=== PATIENT | male | born 1945 | race Caucasian/White ===

== ENCOUNTER → 2018-04-17 17:51 | Outpatient (CLI) | payer MEDICARE, OTHER, SELFPAY | PROVIDERS: Family Provider Family Medicine; PCP Family Medicine; Visit Provider Podiatrist | DX: L03.115 Cellulitis of right lower limb (principal) | CPT/HCPCS: 87070; 87077; 87186; 87205 ==

== ENCOUNTER 2018-07-30 09:27 | Emergency (ER) | payer MEDICARE, OTHER, SELFPAY ==
[2018-07-30 09:28] VITALS: BP 142/80; PULSE 83; RESP 18; TEMP 37.1; O2SAT 98; BMI 31.7
--- NOTE | 2018-07-30 09:54 | ED.VISSUMM ---
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 No fever no cough no trauma Physical Examination: [] He is in no distress he has chronic neuropathy involving both legs right more than left where he has a right foot drop he wears a brace head neck chest unremarkable M soft nontender the right lower extremity dorsally to the foot there is an area patch of redness the toe showed no signs of infection drainage or any source of cellulitis or infection pulses are symmetric the skin is intact his neurologic function shows decreased flexion extension that is normal for him and unchanged Test Results: [] Emergency Department Course and Treatment: [] The reports he had this in the past in April he was seen by local podiatry was treated with clindamycin at this time will speak with the rheumatology fellow who sent him to the emergency department discussed the case in detail, if there is no other further suggestions and will review starting clindamycin which has helped in the past I spoke with Dr. PEREZ his centrifugal wax molder at [facility] discussed the case in detail, including the recent immuno therapy given all the above they agreed she could follow-up with that office the manufacturing software engineer locally clindamycin 300 mg every 6 hours close observation and management of the red spot on the foot including taking a picture of it demarcating it with ink and return for change in symptoms patient accompanies plan fact he did not wish to be admitted and they would follow-up with the manufacturing software engineer and continue to follow-up with dermatology office including clinic return for change in symptoms Treatment Plan: [] Disposition: [] Home stable Impression: [] Cellulitis involving the right lower extremity, recent therapy with Rituxan This note was generated with ImageSpike dictation software. It may contain incorrect words, spelling, and punctuation that were not noted in review of the chart prior to signing ED Disposition - Plan for ED Patient: Chief Complaint: Cellulitis Referrals: Sarkis Taylor DO [Primary Care Provider] -
--- NOTE | 2018-07-30 10:03 | NURSING ---
CALLED [facility] FOR CAR WORKER HELPER RHEUMATALOGIST DR MARY LOU PEREZ PAGED BY [facility] INTERNET MARKETING ASSISTANT
--- NOTE | 2018-07-30 10:26 | NURSING ---
DR PEREZ RETURNED CALL.
--- NOTE | 2018-07-30 10:48 | ED.DEP ---
ED Disposition - Plan for ED Patient: Chief Complaint: Cellulitis Instructions: Discharge Instructions for Cellulitis Prescriptions: Clindamycin HCl [Cleocin] 300 mg PO Q6H #40 cap Referrals: Sarkis Taylor DO [Primary Care Provider] -
[2018-07-30] MEDS: Clindamycin HCl 150 MG Capsule 300 MG PO (11:17)
== END 2018-07-30 11:42 | disposition home or self-care (01) ==
PROVIDERS: Emergency Provider Emergency Medicine; Family Provider Family Medicine; PCP Family Medicine
DX: L03.115 Cellulitis of right lower limb (principal); M06.9 Rheumatoid arthritis, unspecified
CPT/HCPCS: 99282

== ENCOUNTER → 2018-08-01 18:12 | Outpatient (CLI) | payer MEDICARE, OTHER, SELFPAY ==
[2018-08-01 19:32] LABS: M R Staph aureus DNA By PCR Negative (Negative); Probe Check PASS; Specimen Processing Control PASS; Staph aureus DNA By PCR NEGATIVE (Negative)
== END ==
PROVIDERS: Visit Provider Podiatrist
DX: L03.115 Cellulitis of right lower limb (principal)
CPT/HCPCS: 87070; 87077; 87186; 87205; 87640

== ENCOUNTER → 2018-12-04 20:20 | Outpatient (CLI) | payer MEDICARE, OTHER, SELFPAY | PROVIDERS: Family Provider Family Medicine; PCP Family Medicine; Referring Provider Podiatrist; Visit Provider Podiatrist | DX: L03.032 Cellulitis of left toe (principal) | CPT/HCPCS: 87070; 87075; 87077; 87186; 87205 ==

== ENCOUNTER → 2021-03-19 12:53 | Outpatient (CLI) | payer MEDICARE, OTHER, SELFPAY ==
--- NOTE | 2021-03-19 | IMM_PTH ---
PATIENT: BYRON WHITE LOC: [facility] U#:[id number] AGE/SX: 80/M ROOM: RE03/19/[address]: Dr. Bhavin Jacinto MD : 1945 BED: DIS: SPEC #: [id number] RECD: 03/20/21 13:27 STATUS: KEN REKati #: [id number] LAURI: 03/19/21 00:[address]: Bhavin Jacinto DEPT: IMMUNOHISTOCHEMISTRY RECD BY: Tiffany Gunter Tissues: A - PROSTATE RIGHT B - PROSTATE RIGHT C - PROSTATE RIGHT E - PROSTATE LEFT F - PROSTATE LEFT Procedures: 34BE12 (add) P40 (add) 34BE12 (initial) PHYSICIAN & INSTITUTION [place] [id number] SPECIMEN INFORMATION: Tissue Source: A - Right apex, B - Right mid, C - Right base, E - Left mid, F - Left base Clinical Info: Elevated PSA Specimen Number: [id number] A-C, E & F CPT code: 82013, 70430 x8 METHODOLOGY: Deparaffinized sections of prefer/formalin-fixed tissue or PAP/DQ stained slides are incubated with monoclonal/polyclonal antibodies/oligonucleotide probes. Localization is made via biotin free immunoperoxidase method. Appropriate controls are performed and reacted as expected. Results on target cell population are indicated in the following table: RESULTS: ANTIBODY / CLONE RESULT Block A P40 (BC28) positive 34BE12 (34BE12) positive Block B P40 (BC28) negative 34BE12 (34BE12) negative Block C P40 (BC28) positive 34BE12 (34BE12) positive Block E P40 (BC28) tissue exhausted 34BE12 (34BE12) tissue exhausted Block F P40 (BC28) negative 34BE12 (34BE12) negative These tests were developed and their performance characteristics determined by [facility]. They may not have been cleared or approved by the U.S. Food and Drug Administration. The FDA has determined that such clearance or approval is not necessary. The above immunohistochemical/dualISH markers are ordered and reviewed by the Pathologist. INTERPRETATION: A. Right prostate, apex, core biopsy: Benign prostate tissue. B. Right prostate, mid, core biopsy: Focal atypical small acinar proliferation. C. Right prostate, base, core biopsy: Benign prostate tissue. E. Left prostate, mid, core biopsy: Diagnostic tissue exhausted. F. Left prostate, base, core biopsy: Adenocarcinoma. AM:mehdi 03/23/2021
--- NOTE | 2021-03-19 11:30 | PROSBIL_PTH ---
PATIENT: BYRON WHITE LOC: [facility] U#:[id number] AGE/SX: 80/M ROOM: RE03/19/[address]: Dr. Bhavin Jacinto MD : 1945 BED: DIS: SPEC #: [id number] RECD: 03/19/21 13:04 STATUS: KEN ZOIE #: [id number] LAURI: 03/19/21 11:[address]: Bhavin Jacinto DEPT: SURGICAL PATHOLOGY RECD BY: Leni Rodney Tissues: A - PROSTATE RIGHT B - PROSTATE RIGHT C - PROSTATE RIGHT D - PROSTATE LEFT E - PROSTATE LEFT F - PROSTATE LEFT Procedures: PROSTATE BX HEADER OPERATION: Prostate biopsy PRE-OP DIAGNOSIS: Elevated PSA TISSUE SUBMITTED: A - Right apex, B - Right mid, C - Right base, D - Left apex, E - Left mid, F - Left base MICROSCOPIC DIAGNOSIS A. Right prostate, apex, core biopsy: Focal glandular atrophy. See comment. B. Right prostate, mid, core biopsy: Focal atypical small acinar proliferation. See comment. C. Right prostate, base, core biopsy: Focal glandular atrophy. See comment. D. Left prostate, apex, core biopsy: Focal high-grade prostatic intraepithelial neoplasia (HGPIN). E. Left prostate, mid, core biopsy: Adenocarcinoma. Caesar grade: 6 (3+3) Cores involved: 1 out of 2 cores Tissue involved: <1% Greatest tumor length: <1 mm See comment. F. Left prostate, base, core biopsy: Adenocarcinoma. Caesar grade: 6 (3+3) Cores involved: 1 out of 2 cores Tissue involved: 5% Greatest tumor length: 1.3 mm See comment. AM:mehdi 03/20/2021 COMMENT A-C, E & F - Immunohistochemistry ([id number]) supports the above diagnosis. Case has been reviewed in consultation with Dr. Welch who concurs with the above diagnosis. IDC:SJ MICROSCOPIC DESCRIPTION Slides are reviewed. GROSS DESCRIPTION A - Received is one container designated prostate, right apex. The specimen consists of two elongated fragments of light garcia-white soft tissue measuring 0.5 and 1 cm in length and 0.1 cm in diameter. The specimen is totally submitted in one cassette. B - Received is one container designated prostate, right mid. The specimen consists of two elongated fragments of light garcia-white soft tissue measuring 0.5 and 1 cm in length and 0.1 cm in diameter. The specimen is totally submitted in one cassette. C - Received is one container designated prostate, right base. The specimen consists of two elongated fragments of light garcia-white soft tissue measuring 0.5 and 1.2 cm in length and 0.1 cm in diameter. The specimen is totally submitted in one cassette. D - Received is one container designated prostate, left apex. The specimen consists of two elongated fragments of light garcia-white soft tissue measuring 0.5 and 1 cm in length and 0.1 cm in diameter. The specimen is totally submitted in one cassette. E - Received is one container designated prostate, left mid. The specimen consists of two elongated fragments of light garcia-white soft tissue measuring 0.6 and 1.5 cm in length and 0.1 cm in diameter. The specimen is totally submitted in one cassette. F - Received is one container designated prostate, left base. The specimen consists of two elongated fragments of light garcia-white soft tissue each measuring 1.2 cm in length and 0.1 cm in diameter. The specimen is totally submitted in one cassette. / SJ:rg 03/19/21 TC:0 CPT: G0146
== END ==
PROVIDERS: Referring Provider Urology; Visit Provider Urology
DX: R97.20 Elevated prostate specific antigen [PSA] (principal)
CPT/HCPCS: 88305; 88341; 88342; G0416

== ENCOUNTER → 2021-06-09 | Outpatient (CLI) | payer MEDICARE, OTHER, SELFPAY | END | disposition home or self-care (01) | PROVIDERS: Referring Provider Podiatrist; Visit Provider Podiatrist | DX: L03.032 Cellulitis of left toe (principal) | CPT/HCPCS: 87070; 87075; 87077; 87186; 87205 ==

== ENCOUNTER → 2022-03-18 | Outpatient (CLI) | payer MEDICARE, OTHER, SELFPAY | END | disposition home or self-care (01) | LOC: LABSPEC 03-19 06:41 | PROVIDERS: Referring Provider Podiatrist; Visit Provider Podiatrist | DX: L03.032 Cellulitis of left toe (principal) | CPT/HCPCS: 87070; 87075; 87077; 87186; 87205 ==

== ENCOUNTER → 2022-04-20 | Outpatient (CLI) | payer MEDICARE, OTHER, SELFPAY ==
[2022-04-20 10:40] LABS: CREATININE FINGERSTICK 1.2 mg/dL (0.70-1.30); EGFR FINGERSTICK > 60.0000 mL/min (>60)
--- NOTE | 2022-04-20 10:45 | MRI_ITS ---
PROSTATE MRI WITHOUT AND WITH IV CONTRAST HISTORY/INDICATION: Elevated PSA TECHNIQUE: Multiplanar, multisequence imaging of the pelvis in accordance with PIRADS recommendations before and after intravenous administration of 19 mL Dotarem using external phased array coil. Dedicated 3 plane small field of view T2 FSE, axial diffusion-weighted imaging with width B values 50-800 s/mm2 and calculated u=6948 s/mm2 and ADC map; and axial 3-D dynamic contrast enhanced T1 weighted images with temporal resolution in 3 mm slice thickness in addition to full pelvis postcontrast T1-weighted imaging. COMPARISON:None FINDINGS: Size: 3.5 x 4.3 x 4.2 (Lx W x H) cm for 32.9 cubic cm. Quality: Good, mild artifact Hemorrhage: None Peripheral zone: Slightly heterogeneous high signal. Focal finding as below. Transition zone: Moderate heterogeneity consistent with prostatic hyperplasia. Focal finding as below. Lesion #1: Location: right midgland transition zone anterior (RM-TZa) on series 6 image 13, axial T2 Size: 1.1 cm T2: homogeneous, moderately hypointense without extraprostatic extension, ill-defined margins. DWI: focal markedly hyperintense on high b-value DWI and markedly hypointense on ADC, image 16 series 802, 803. Prostate margin: Mildly lobular Lesion overall PI-RADS: 4/5 Neurovascular bundles: Not involved Seminal vesicles: not involved Lymph nodes: no lymphadenopathy Bones: Signal dropout of the right more than left sacrum identified on T1 and T2 fat saturation images. Other pelvic organs: normal MRI/Pelvis W/WO Contrast IMPRESSION: 1. PI-RADS 4 - High (clinically significant cancer is likely to be present). 2. Signal dropout of the right more than left sacrum on both T1 and T2 fat saturation weighted images. Potentially could represent fatty metamorphosis of the bone marrow although recommend correlation with bone scan and/or CT for evaluation of osteoblastic lesion. PI?RADSR v2.1 Assessment Categories PI-RADS 1 ? Very low (clinically significant cancer is highly unlikely to be present) PI-RADS 2 ? Low (clinically significant cancer is unlikely to be present) PI-RADS 3 ? Intermediate (the presence of clinically significant cancer is equivocal) PI-RADS 4 ? High (clinically significant cancer is likely to be present) PI-RADS 5 ? Very high (clinically significant cancer is highly likely to be present) Electronically Signed: Federico Weldon MD (Brooks) at 14:35 EDT ,
== END | disposition home or self-care (01) ==
LOC: MRI 10:18
PROVIDERS: PCP Student in an Organized Health Care Education/Training Program; Referring Provider Urology; Visit Provider Urology
DX: C61 Malignant neoplasm of prostate (principal)
CPT/HCPCS: 72197; A9575

== ENCOUNTER 2022-06-02 08:37 | Day surgery (SDC) | payer MEDICARE, OTHER, SELFPAY ==
--- NOTE | 2022-05-27 09:26 | EKG12_ITS ---
Test Reason : PREOP Blood Pressure : / mmHG Vent. Rate : 080 BPM Atrial Rate : 080 BPM P-R Int : 162 ms QRS Dur : 090 ms QT Int : 364 ms P-R-T Axes : 055 -40 065 degrees QTc Int : 419 ms Normal sinus rhythm Left axis deviation Abnormal ECG Confirmed by ETTA BENNETT, SHANNON ([id number]), news videotape editor SHAREE WOOD ([id number]) on 06/01/2022 9:37:24 AM Referred By: Bhavin Jaicnto Confirmed By:KE QUILES MD
[2022-05-27 10:48] LABS: Hematocrit 41.8 % (40-54); Hemoglobin 13.6 g/dL (13.0-16.5); Mean Corp Hgb Conc 32.5 g/dL (32-36); Mean Corpuscular Hgb 31.1 pg (27.0-32.0); Mean Corpuscular Volume 95.7 fL (80-94); Mean Platelet Vol. 8.8 fl (6.2-12.0); Platelet Count 340 K/mm3 (150-450); RBC Distribution Width CV 13.8 % (11.6-14.6); Red Blood Count 4.37 M/mm3 (4.6-6.2); White Blood Count 5.4 K/mm3 (4.4-11.0)
[2022-05-27 11:38] LABS: Anion Gap 5 (5-15); BUN 17 mg/dL (7-18); BUN/Creat Ratio 10.2 RATIO (10-20); Calcium,Total 9.2 mg/dL (8.5-10.1); Chloride 105 mmol/L (98-107); Creatinine, Serum 1.66 mg/dL (0.70-1.30); EST Glomerular Filtration Rate 43 mL/min (>60); Est Glom Filt Rate - Afr Amer 52 mL/min (>60); Glucose 85 mg/dL (74-106); Potassium 4.3 mmol/L (3.5-5.1); Sodium Level 139 mmol/L (136-145); Thyroid Stim Hormone (TSH) 1.84 uIU/mL (0.358-3.74)
--- NOTE | 2022-06-02 | IMM_PTH ---
PATIENT: BYRON WHITE LOC: [facility] [place] U#:[id number] AGE/SX: 76/M ROOM: RE06/02/[address]: Dr. Bhavin Jacinto MD : 1945 BED: DIS: 06/02/2022 SPEC #: [id number] RECD: 06/03/22 13:31 STATUS: KEN REQ #: [id number] LAURI: 06/02/22 00:[address]: Bhavin Jacinto DEPT: IMMUNOHISTOCHEMISTRY RECD BY: Tiffany Gunter ENTERED: 06/03/22 13:33 SP TYPE: IMMUNO OTHR DR: Dr. Brown Montiel, DO Tissues: H - PROSTATE LEFT K - PROSTATE LEFT Procedures: 34BE12 (add) P40 (add) 34BE12 (initial) PHYSICIAN & INSTITUTION [place] [address] SPECIMEN INFORMATION: Tissue Source: H - Left prostate, base lateral, core biopsy, K - Left prostate, apex medial, core biopsy Clinical Info: Malignant prostate neoplasm, BPH with lower urinary tract symptoms, elevated PSA Specimen Number: [id number] H & K CPT code: 60117, 49179 x3 METHODOLOGY: Deparaffinized sections of prefer/formalin-fixed tissue or PAP/DQ stained slides are incubated with monoclonal/polyclonal antibodies/oligonucleotide probes. Localization is made via biotin free immunoperoxidase method. Appropriate controls are performed and reacted as expected. Results on target cell population are indicated in the following table: RESULTS: ANTIBODY / CLONE RESULT Block H 34BE12 (34BE12) negative (a few glands) P40 (BC28) negative (a few glands) Block K 34BE12 (34BE12) positive P40 (BC28) positive These tests were developed and their performance characteristics determined by [facility]. They may not have been cleared or approved by the U.S. Food and Drug Administration. The FDA has determined that such clearance or approval is not necessary. The above immunohistochemical/dualISH markers are ordered and reviewed by the Pathologist. INTERPRETATION: H. Left prostate, base lateral, core biopsy: Focal Atypical small acinar proliferation (BERNADINE). K. Left prostate, apex medial, core biopsy: Negative for malignancy. SJ:mehdi 06/04/2022
--- NOTE | 2022-06-02 | PROSBIL_PTH ---
PATIENT: BYRON WHITE LOC: [facility] [place] U#:[id number] AGE/SX: 76/M ROOM: RE06/02/[address]: Dr. Bhavin Jacinto MD : 1945 BED: DIS: 06/02/2022 SPEC #: [id number] RECD: 06/02/22 13:12 STATUS: KEN RE #: [id number] LAURI: 06/02/22 00:[address]: Bhavin Jacinto DEPT: SURGICAL PATHOLOGY RECD BY: Raimundo Stewart ENTERED: 06/02/22 13:15 SP TYPE: PROST BX SHOBHA DR: Dr. Brown Montiel, DO Tissues: A - PROSTATE RIGHT B - PROSTATE RIGHT C - PROSTATE RIGHT D - PROSTATE RIGHT E - PROSTATE RIGHT F - PROSTATE RIGHT G - PROSTATE LEFT H - PROSTATE LEFT I - PROSTATE LEFT J - PROSTATE LEFT K - PROSTATE LEFT L - PROSTATE LEFT Procedures: PROSTATE BX HEADER OPERATION: Ultrasound-guided prostate biopsy PRE-OP DIAGNOSIS: Malignant neoplasm of prostate, BPH with lower urinary tract symptoms, elevated PSA TISSUE SUBMITTED: A ? Right base medial biopsy, prostate, B ? Right base lateral biopsy, prostate, C ? Right mid medial biopsy, prostate, D ? Right lateral biopsy, prostate, E ? Right apex medial biopsy, prostate, F - Right apex lateral biopsy, prostate, G ? Left base medial biopsy, prostate, H - Left base lateral biopsy, prostate, I ? Left mid medial biopsy, prostate, J ? Left mid lateral biopsy, prostate, K ? Left apex medial biopsy, prostate, L - Left apex lateral biopsy, prostate MICROSCOPIC DIAGNOSIS A. Right prostate, base medial, core biopsy: Prostatic adenocarcinoma. Caesar grade: 3+3=6 Number of cores involved: 1/1 Proportion of tissue involved: ~30% Perineural invasion: Not identified. Greatest tumor length: 0.5 cm B. Right prostate, base lateral, core biopsy: Prostatic adenocarcinoma. Athelstane grade: 3+3=6 Number of cores involved: 1/1 Proportion of tissue involved: 30% Perineural invasion: Not identified. Greatest tumor length: 0.3 cm C. Right prostate, mid medial, core biopsy: Prostatic adenocarcinoma. Caesar grade: 3+3=6 Number of cores involved: 1/1 Proportion of tissue involved: 50% Perineural invasion: Not identified. Greatest tumor length: 0.8 cm D. Right prostate, lateral, core biopsy: Prostatic adenocarcinoma. Caesar grade: 3+3=6 Number of cores involved: 1/1 Proportion of tissue involved: ~10% Perineural invasion: Not identified. Greatest tumor length: 1.0 cm, discontinuous E. Right prostate, apex medial, core biopsy: Prostatic adenocarcinoma. Athelstane grade: 3+3=6 Number of cores involved: 1/1 Proportion of tissue involved: 25% Perineural invasion: Not identified. Greatest tumor length: 0.4 cm F. Right prostate, apex lateral, core biopsy: Prostatic adenocarcinoma. Caesar grade: 3+3=6 Number of cores involved: 1/1 Proportion of tissue involved: 30% Perineural invasion: Not identified. Greatest tumor length: 1.3 cm, discontinuous G. Left prostate, base medial, core biopsy: Prostatic tissue, negative for malignancy. H. Left prostate, base lateral, core biopsy: Focal atypical small acinar proliferation (BERNADINE). See comment. I. Left prostate, mid medial, core biopsy: Prostatic adenocarcinoma. Athelstane grade: 3+3=6 Number of cores involved: 1/ Proportion of tissue involved: 25% Perineural invasion: Not identified. Greatest tumor length: 0.3 cm J. Left prostate, mid lateral, core biopsy: Prostatic tissue, negative for malignancy. K. Left prostate, apex medial, core biopsy: Prostatic tissue, negative for malignancy. See comment. L. Left prostate, apex lateral, core biopsy: Prostatic tissue, negative for malignancy. SJ:mehdi 06/03/2022 COMMENT H & K. Immunohistochemistry ([id number]) supports the above diagnosis. Case has been reviewed in consultation with Dr. Anguiano who concurs with the above diagnosis. IDC:AM MICROSCOPIC DESCRIPTION Slides are reviewed. GROSS DESCRIPTION A - Received is one container designated prostate, right base medial. The specimen consists of one elongated fragment of light garcia-white soft tissue measuring 2 cm in length and 0.1 cm in diameter. The specimen is totally submitted in one cassette. B - Received is one container designated prostate, right base lateral. The specimen consists of one elongated fragment of light garcia-white soft tissue measuring 2 cm in length and 0.1 cm in diameter. The specimen is totally submitted in one cassette. C - Received is one container designated prostate, right mid medial. The specimen consists of one elongated fragment of light garcia-white soft tissue measuring 1.5 cm in length and 0.1 cm in diameter. The specimen is totally submitted in one cassette. D - Received is one container designated prostate, right mid lateral. The specimen consists of one elongated fragment of light garcia-white soft tissue measuring 2 cm in length and 0.1 cm in diameter. The specimen is totally submitted in one cassette. E - Received is one container designated prostate, right apex medial. The specimen consists of one elongated fragment of light garcia-white soft tissue measuring 1.5 cm in length and 0.1 cm in diameter. The specimen is totally submitted in one cassette. F - Received is one container designated prostate, right apex lateral. The specimen consists of one elongated fragment of light garcia-white soft tissue measuring 2 cm in length and 0.1 cm in diameter. The specimen is totally submitted in one cassette. G - Received is one container designated prostate, left base medial. The specimen consists of one elongated fragment of light garcia-white soft tissue measuring 2 cm in length and 0.1 cm in diameter. The specimen is totally submitted in one cassette. H - Received is one container designated prostate, left base lateral. The specimen consists of one elongated fragment of light garcia-white soft tissue measuring 2 cm in length and 0.1 cm in diameter. The specimen is totally submitted in one cassette. I - Received is one container designated prostate, left mid medial. The specimen consists of one elongated fragment of light garcia-white soft tissue measuring 2 cm in length and 0.1 cm in diameter. The specimen is totally submitted in one cassette. J - Received is one container designated prostate, left mid lateral. The specimen consists of one elongated fragment of light garcia-white soft tissue measuring 2 cm in length and 0.1 cm in diameter. The specimen is totally submitted in one cassette. K - Received is one container designated prostate, left apex medial. The specimen consists of one elongated fragment of light garcia-white soft tissue measuring 1.5 cm in length and 0.1 cm in diameter. The specimen is totally submitted in one cassette. L - Received is one container designated prostate, left base lateral. The specimen consists of two elongated fragments of light garcia-white soft tissue each measuring 1.5 cm in length and 0.1 cm in diameter. The specimen is totally submitted in one cassette. / AM:mehdi 06/02/2022 TC:0 CPT: G0146
--- NOTE | 2022-06-02 09:12 | US_ITS ---
PROCEDURES: TRANSRECTAL ULTRASOUND GUIDED - PROSTATE REASON FOR EXAM: Male, 76 years old. Prostate biopsy TECHNIQUE: Ultrasound evaluation of the prostate was performed with real-time and static ramirez-scale imaging. BIOPSY: A needle core biopsy was perform. A consent form was signed, PT-PTT levels checked and a time-out was called. The patient is currently off any anticoagulant therapy. Cleansing enema: Yes COMPARISON: None. FINDINGS: Ultrasound-guided prostate biopsy. 12 samples were obtained. US/Intraoperative Ultrasound IMPRESSION: Ultrasound guided prostate biopsy. Electronically Signed: Isaak Paredes MD at 11:56 EDT ,
[2022-06-02 09:13] VITALS: BP 146/76; PULSE 98; RESP 16; TEMP 37.2; O2SAT 100; BMI 31.4
[2022-06-02] MEDS: Lactated Ringers 1,000 ML 15 ML IV (09:20)
[2022-06-02] MEDS: Cefazolin 2 GM in 0.9% Normal Saline 100 ML IV (10:49)
--- NOTE | 2022-06-02 11:11 | PCM.HP.STD ---
HPI - General HPI Narrative BYRON WHITE, is a 76 M who presents for a prostate biopsy h/o low grade prostate ca, on but rising psa and MrI with sujata seen. will do biopsy today, rec we not do TURP until we establish his cancer care plan first. REPLACED BY [facility] Medical History (Updated 05/26/22 @ 13:24 by Luzmaria García) Ambulates with cane Cancer Eczema Foot drop High cholesterol History of echocardiogram History of edema History of renal disease Hx of ingrown nail Hypertension Hypothyroid Loss of hearing Monoclonal paraproteinemia Neuropathy Osteopenia Rheumatoid arthritis Sciatic nerve pain Sleep apnea Vasculitis Walker as ambulation aid Wears glasses Home Medications fish oil-dha-epa 1,200 mg-144 mg-216 mg capsule 2 ea PO DAILY 10/31/15 [History Last Taken Unknown] multivitamin (Daily Multiple) 1 ea PO DAILY 10/31/15 [History Last Taken Unknown] acetaminophen 500 mg tablet 1,000 mg PO Q8H PRN Pain 05/26/22 [History Last Taken Unknown] amlodipine 5 mg tablet 1 tab PO DAILY 05/26/22 [History Last Taken 06/02/22 04:00] ascorbic acid (vitamin C) 500 mg chewable tablet (Vitamin C) 500 mg PO DAILY 05/26/22 [History Last Taken Unknown] cholecalciferol (vitamin D3) 50 mcg (2,000 unit) capsule (Vitamin D3) 50 mcg PO DAILY 05/26/22 [History Last Taken Unknown] ciprofloxacin HCl 500 mg tablet 1 tab PO BID 05/26/22 [History Last Taken Unknown] cyanocobalamin (vitamin B-12) 500 mcg tablet (Vitamin B-12) 500 mcg PO DAILY 05/26/22 [History Last Taken Unknown] levothyroxine 125 mcg tablet 1 tab PO DAILY 05/26/22 [History Last Taken 06/02/22 04:00] methylprednisolone sodium succ 125 mg/2 mL solution for injection 125 mg IV QMONTH 05/26/22 [History Last Taken Unknown] multivitamin 1 tab PO DAILY 05/26/22 [History Last Taken Unknown] rituximab 10 mg/mL concentrate,intravenous 10 mg IV QMONTH 05/26/22 [History Last Taken Unknown] tamsulosin 0.4 mg capsule 2 cap PO DAILY 05/26/22 [History Last Taken Unknown] ciprofloxacin HCl 500 mg tablet (Cipro) 500 mg PO BID #6 tabs 06/02/22 [Rx Last Taken Unknown] Allergy/AdvReac Type Severity Reaction Status Date / Time methotrexate Allergy Other Verified 06/02/22 09:13 NSAIDS (Non-Steroidal AdvReac Other Verified 06/02/22 09:13 Anti-Inflamma Penicillins AdvReac Other Verified 06/02/22 09:13 Surgical History (Updated 05/26/22 @ 13:24 by Luzmaria García) History of ankle surgery Social History Smoking Status: Never smoker Vital Signs Vital Signs Vital Signs: 06/02/22 09:13 06/02/22 09:13 Temperature 99.0 F Temperature Source Temporal Pulse Rate 98 Respiratory Rate 16 Respiratory Pattern Normal Blood Pressure 146/76 H Blood Pressure Mean 99 Blood Pressure Source Monitor Blood Pressure Position Semi-Fowlers Blood Pressure Location Left Arm Pulse Ox 100 Oxygen Delivery Method Room Air Weight Weight: 91 kg Body Mass Index (BMI) 31.4 Results Lab / Micro Data Result Diagrams: 05/27/22 09:45 05/27/22 09:45
--- NOTE | 2022-06-02 11:12 | DCINST_ITS ---
Discharge Instructions Diet Discharge Diet: Light diet - advance as tolerated and Soft diet Activity Discharge Activity: Return to Normal Activity and No Restrictions Follow Up Care Please Follow Up With: Bhavin Jacinto MD When: 2 weeks, call for appt. Test Results: Test results from this visit will be discussed in further detail at your follow- up appointment, if applicable. Discharge Plan Admission Primary Reason for Your Visit: us guided prostate biopsy Attending Provider: Bhavin Jacinto Primary Care Provider: Brown Montiel Discharge Orders/Prescriptions Prescriptions: New ciprofloxacin HCl [Cipro] 500 mg tablet 500 mg PO BID Qty: 6 0RF Continued multivitamin [Daily Multiple] 1 EACH tablet 1 ea PO DAILY fish oil-dha-epa 1 EACH capsule 2 ea PO DAILY multivitamin Tablet 1 tab PO DAILY amlodipine 5 mg tablet 1 tab PO DAILY Label Comments: TAKE 1 TABLET BY MOUTH DAILY acetaminophen 500 mg Tablet 1,000 mg PO Q8H PRN (Reason: Pain) cyanocobalamin (vitamin B-12) [Vitamin B-12] 500 mcg Tablet 500 mcg PO DAILY tamsulosin 0.4 mg capsule 2 cap PO DAILY Label Comments: TAKE 2 CAPSULES BY MOUTH EVERY EVENING levothyroxine 125 mcg tablet 1 tab PO DAILY Label Comments: TAKE 1 TABLET BY MOUTH DAILY ascorbic acid (vitamin C) [Vitamin C] 500 mg Tablet,Chewable 500 mg PO DAILY rituximab 10 mg/mL Concentrate 10 mg IV QMONTH Rx Instructions: Every 6 months cholecalciferol (vitamin D3) [Vitamin D3] 50 mcg (2,000 unit) Capsule 50 mcg PO DAILY ciprofloxacin HCl 500 mg tablet 1 tab PO BID Label Comments: TAKE 1 TABLET BY MOUTH TWICE DAILY start med the day before your surgery methylprednisolone sodium succ 125 mg/2 mL Recon Soln 125 mg IV QMONTH Rx Instructions: Every 6 months Other Ambulatory Orders: 12 Lead EKG (Routine) Timeframe: [id number] Location: None Selected Ordered By: Dr. Miguel Mcelroy Referrals / Follow Up: Bhavin Jacinto MD [STAFF PHYSICIAN] - Brown Montiel DO [Primary Care Provider] - Disposition Disposition (needs filled in before D/C Order can be placed): Home, Self Care
--- NOTE | 2022-06-02 11:12 | PCM.OPRPT ---
Report of Operation Date of Procedure: 06/02/22 Pre-Operative Diagnosis: Elevated PSA rising PSA history of prostate cancer abnormal an MRI Post-Operative Diagnosis: Same Surgery/Procedure Performed:: Transrectal ultrasound-guided biopsy of the prostate targeting lesions an MRI Description of Surgical Findings:: Patient was taken back to the operating room at the [facility] duction of general anesthetic a biplanar ultrasound probe was placed into the rectum we performed ultrasonography of the prostate identified the anatomy he had a small prostate only about 35 g in size did have transition zone slightly enlarged but very hypoechoic area in the right anterior zone area of the prostate very concerning for cancer I did biopsies of the right base right mid right apex medially and laterally on both the left and right side after the biopsies were completed good sampling of the prostate was obtained in all areas minimal bleeding after the procedure. We made sure to incorporate into the biopsies areas abnormally seen on ultrasound. Patient anesthetic reversed see me in a few weeks to review the results of the biopsy and then will have to establish a definite plan of care if it demonstrates progression of his cancer. Surgeon: Bhavin Jacinto Type of Anesthesia: General Admit VTE Documentation VTE Present on Admission: No VTE Mechan Device Prophylaxis: SCD's VTE Pharm Prophylaxis ordered?: No
[2022-06-02 11:19] VITALS: BP 103/66; BP 146/76; PULSE 87; RESP 16; TEMP 36.5; O2SAT 91
[2022-06-02 11:30] VITALS: BP 113/70; BP 146/76; PULSE 86; RESP 16; O2SAT 94
[2022-06-02 11:45] VITALS: BP 129/74; BP 146/76; PULSE 87; RESP 18; TEMP 36.7; O2SAT 94
[2022-06-02] MEDS: Acetaminophen 325 MG Tablet 650 MG PO (12:12)
[2022-06-02 12:21] VITALS: BP 139/74; BP 146/76; PULSE 82; RESP 16; TEMP 36.9; O2SAT 98
== END 2022-06-02 12:30 | disposition home or self-care (01) ==
LOC: SDC 08:38 → AC 08:38
PROVIDERS: Anesthesiology; PCP Student in an Organized Health Care Education/Training Program; Referring Provider Urology; Visit Provider Urology
PROC: (CPT 55700; principal; 2022-06-02 10:40)
DX: C61 Malignant neoplasm of prostate (principal); R97.20 Elevated prostate specific antigen [PSA]; I10 Essential (primary) hypertension; Z79.1 Long term (current) use of non-steroidal anti-inflammatories (NSAID); E78.00 Pure hypercholesterolemia, unspecified; N42.32 Atypical small acinar proliferation of prostate; Z85.46 Personal history of malignant neoplasm of prostate
CPT/HCPCS: 55700; 00902; 36415; 76998; 80048; 84443; 85027; 88305; 88341; 88342; 93005; J7120; G0416; J2405

== ENCOUNTER 2022-08-04 05:50 | Day surgery (SDC) | payer MEDICARE, OTHER, SELFPAY ==
[2022-08-04 06:33] VITALS: BP 141/79; PULSE 80; RESP 16; TEMP 36.3; O2SAT 98; BMI 31.4
[2022-08-04] MEDS: Lactated Ringers 1,000 ML 15 ML IV (06:38)
[2022-08-04] MEDS: Cefazolin 2 GM in 0.9% Normal Saline 100 ML IV (07:27)
--- NOTE | 2022-08-04 07:49 | HP.PCM_ITS ---
HPI - General General Date of Service: 08/04/22 HPI Narrative BYRON WHITE, is a 76 M who presents for placement of spacer gel and also gold markers for radiation we talked extensively about the risk of radiation he understands that even with a spacer gel there is no guarantees that this will prevent any toxic complications from radiation to the rectum. [facility] Medical History (Updated 06/18/22 @ 11:[address] Bret Wesley, DO) Abnormal pathology report from prostate needle biopsy Abnormal transrectal ultrasound of prostate Ambulates with cane BPH (benign prostatic hyperplasia) Cancer Cataract (lens) fragments in eye following cataract surgery Eczema Foot drop High cholesterol History of echocardiogram History of edema History of renal disease Hx of ingrown nail Hypertension Hypothyroid Loss of hearing Monoclonal paraproteinemia Neuropathy Osteopenia PSA elevation Rheumatoid arthritis Sciatic nerve pain Sleep apnea Vasculitis Walker as ambulation aid Wears glasses Home Medications multivitamin (Daily Multiple tablet) 1 ea PO DAILY 10/31/15 [History Last Taken Unknown] acetaminophen 500 mg tablet 1,000 mg PO Q8H PRN Pain 05/26/22 [History Last Taken Unknown] amlodipine 5 mg tablet 1 tab PO DAILY 05/26/22 [History Last Taken 08/04/22 1 TAB] ascorbic acid (vitamin C) 500 mg chewable tablet (Vitamin C) 500 mg PO DAILY 05/26/22 [History Last Taken Unknown] cholecalciferol (vitamin D3) 50 mcg (2,000 unit) capsule (Vitamin D3) 50 mcg PO DAILY 05/26/22 [History Last Taken Unknown] cyanocobalamin (vitamin B-12) 500 mcg tablet (Vitamin B-12) 500 mcg PO DAILY 05/26/22 [History Last Taken Unknown] levothyroxine 125 mcg tablet 1 tab PO DAILY 05/26/22 [History Last Taken 08/04/22 1 TAB] methylprednisolone sodium succ 125 mg/2 mL solution for injection 125 mg IV .[id number] 05/26/22 [History Last Taken Unknown] rituximab 10 mg/mL concentrate,intravenous 10 mg IV .[id number] 05/26/22 [History Last Taken Unknown] diphenhydramine HCl 25 mg capsule (Allergy (diphenhydramine)) 25 mg PO .[id number] PRN ONLY WITH INFUSIONS 06/16/22 [History Last Taken Unknown] ceramides 1,3,6-II (CeraVe topical cream) 1 applic topical DAILY 07/28/22 [History Last Taken Unknown] leuprolide (3 month) 22.5 mg (3 month) subcutaneous syringe (Eligard) 22.5 mg subcut .[id number] 07/28/22 [History Last Taken Unknown] omega-3 fatty acids 1,000 mg PO DAILY 07/28/22 [History Last Taken 07/29/22] triamcinolone acetonide 0.1 %-silicones topical kit 1 ea topical DAILY PRN Rash 07/28/22 [History Last Taken Unknown] ciprofloxacin HCl 500 mg tablet (Cipro) 500 mg PO BID #14 tabs 08/04/22 [Rx Last Taken Unknown] Allergy/AdvReac Type Severity Reaction Status Date / Time methotrexate Allergy Other Verified 08/04/22 06:28 NSAIDS (Non-Steroidal AdvReac Other Verified 08/04/22 06:28 Anti-Inflamma Penicillins AdvReac Other Verified 08/04/22 06:28 Family History Father Cancer Marcus Cell Cancer Arthritis Mother Arthritis Surgical History (Updated 07/28/22 @ 09:11 by Laverne Cavanaugh) H/O removal of cyst History of ankle surgery Hx of prostate biopsy Hx of tonsillectomy Social History (Updated 06/18/22 @ 09:46 by Domenica Latham) household members: spouse number of children: 2 Smoking Status: Former smoker pack-years: 1 Vital Signs Vital Signs Vital Signs: 08/04/22 06:33 08/04/22 06:33 Temperature 97.3 F L Temperature Source Temporal Pulse Rate 80 Respiratory Rate 16 Respiratory Pattern Normal Blood Pressure 141/79 H Blood Pressure Mean 99 Blood Pressure Source Monitor Blood Pressure Position Semi-Fowlers Blood Pressure Location Right Arm Pulse Ox 98 Oxygen Delivery Method Room Air Weight Weight: 91 kg Body Mass Index (BMI) 31.4
--- NOTE | 2022-08-04 07:50 | OP.PCM_ITS ---
Report of Operation Date of Procedure: 08/04/22 Pre-Operative Diagnosis: Prostate cancer Post-Operative Diagnosis: Same Surgery/Procedure Performed:: Placement of gold markers and spacer gel matrix Description of Surgical Findings:: In the preoperative area I reviewed with the patient how the procedure is done we talked about the risk of the procedure including the risk of infection, bleeding, migration of the spacer gel, the patient is planning to have radiation to the prostate he understands that the spacer gel has demonstrated benefit in reducing the risk of toxicity from the ration radiation to the rectum but there is no guarantees that this spacer gel will prevent any serious complications or toxicity to the rectum or bowels. After reviewing this with the patient and his family organ to proceed with placement of a spacer gel matrix. Patient was taken back to the operating room after smooth induction of anesthesia he was placed supine on the table. The genitals and perineum were prepped and draped in usual sterile fashion. I then introduced a biplanar ultrasound probe into the rectum and performed ultrasonography and identified the Denonvilliers' fascia the prostate mid base and apex and seminal vesicles. The penis and testicles were prepped and draped in usual sterile fashion, ultrasound probe was placed into the rectum and biplanar ultrasound was performed on the prostate. Identified the base mid and apex of the prostate identified the transition zone prostate. Then using a needle the first fishing rod marker was placed into the right base of the prostate, the second fishing rod marker was placed in the left base of the prostate, and the third core marker was placed in the right apex of the prostate after all 3 markers were placed the placement of the markers were confirmed by ultrasonography. The spacer gel mix was then prepared on the back table per manufactures instruction. Under ultrasound guidance in the midline perineum a bevel needle down we advanced through the perineum below the prostate into the space of Denonvilliers' fascia. This space which could be identified by ultrasound with a bright white layer between the prostate and the rectum. I then injected a puff of normal saline to identify the space further. After I confirmed that the needle was in the correct space in the mid prostate and the space of Denonvilliers' fascia between the rectum and the prostate. Then over the course of 15 seconds the gel matrix was injected slowly there was nice separation between the prostate and the rectum at the gel matrix was injected. The position of the gel matrix was confirmed by ultrasound. Then the injection needle was removed intact. Patient's perineum was cleaned patient was taken out of stirrups and then taken back to the PACU in good condition. Surgeon: Bhavin Jacinto Type of Anesthesia: General Drains: none Complications none Admit VTE Documentation VTE Present on Admission: No VTE Mechan Device Prophylaxis: SCD's
--- NOTE | 2022-08-04 07:53 | PCM.DC ---
Discharge Instructions Diet Discharge Diet: No restrictions and Light diet - advance as tolerated Activity Discharge Activity: Return to Normal Activity Follow Up Care Please Follow Up With: Bhavin Epstein MD When: keep appt for next eligard injection. Discharge Plan Admission Primary Reason for Your Visit: placement of spacer gel Attending Provider: Bhavin Epstein Primary Care Provider: Brown Montiel Discharge Orders/Prescriptions Prescriptions: New ciprofloxacin HCl [Cipro] 500 mg tablet 500 mg PO BID Qty: 14 0RF Continued diphenhydramine HCl [Allergy (diphenhydramine)] 25 mg capsule 25 mg PO .[id number] PRN (Reason: ONLY WITH INFUSIONS) multivitamin [Daily Multiple] 1 EACH tablet 1 ea PO DAILY amlodipine 5 mg tablet 1 tab PO DAILY Label Comments: TAKE 1 TABLET BY MOUTH DAILY acetaminophen 500 mg Tablet 1,000 mg PO Q8H PRN (Reason: Pain) cyanocobalamin (vitamin B-12) [Vitamin B-12] 500 mcg Tablet 500 mcg PO DAILY levothyroxine 125 mcg tablet 1 tab PO DAILY Label Comments: TAKE 1 TABLET BY MOUTH DAILY ascorbic acid (vitamin C) [Vitamin C] 500 mg Tablet,Chewable 500 mg PO DAILY rituximab 10 mg/mL Concentrate 10 mg IV .[id number] Rx Instructions: Every 6 months cholecalciferol (vitamin D3) [Vitamin D3] 50 mcg (2,000 unit) Capsule 50 mcg PO DAILY methylprednisolone sodium succ 125 mg/2 mL Recon Soln 125 mg IV .[id number] Rx Instructions: Every 6 months Eligard (3 month) 22.5 mg Syringe 22.5 mg SUBCUT .[id number] omega-3 fatty acids Capsule 1,000 mg PO DAILY Label Comments: STOP [address] EPSTEIN CeraVe Cream 1 applic TOPICAL DAILY triamcinolone aceton-silicones 0.1 % Kit 1 ea TOPICAL DAILY PRN (Reason: Rash) Referrals / Follow Up: Bhavin Epstein MD [Med Staff - Active Staff] - Brown Montiel DO [Primary Care Provider] - Disposition Disposition (needs filled in before D/C Order can be placed): Home, Self Care
[2022-08-04 07:56] VITALS: BP 116/64; BP 141/79; PULSE 85; RESP 16; TEMP 36.6; O2SAT 93
[2022-08-04 08:01] VITALS: BP 112/70; BP 141/79; PULSE 83; RESP 16; O2SAT 94
[2022-08-04 08:15] VITALS: BP 125/76; BP 141/79; PULSE 79; RESP 16; TEMP 36.3; O2SAT 95
[2022-08-04 08:45] VITALS: BP 126/87; BP 141/79; PULSE 87; RESP 16; TEMP 36.6; O2SAT 98
== END 2022-08-04 09:03 | disposition home or self-care (01) ==
LOC: SDC 05:50 → AC 05:51
PROVIDERS: PCP Student in an Organized Health Care Education/Training Program; Referring Provider Urology; Visit Provider Urology
PROC: (CPT 55874; principal; 2022-08-04 07:15)
DX: C61 Malignant neoplasm of prostate (principal); Z87.891 Personal history of nicotine dependence; N40.0 Benign prostatic hyperplasia without lower urinary tract symptoms; E78.00 Pure hypercholesterolemia, unspecified; E03.9 Hypothyroidism, unspecified; I10 Essential (primary) hypertension
CPT/HCPCS: 55876; 00400; J7120; J2405

== ENCOUNTER → 2022-08-12 | Outpatient (CLI) | payer MEDICARE, OTHER, SELFPAY ==
--- NOTE | 2022-08-12 10:41 | MRI_ITS ---
STUDY: MR PELVIS WITH T WITHOUT CONTRAST REASON FOR EXAM: Male, 76 years old. ELEVATED PROSTATE SPECIFIC ANTIGEN History: s/p spaceOAR and fiducials, planning for XRT -- PROSTATE CANCER X 1 1/2 YEARS. TECHNIQUE: Standardized fat and water weighted pulse sequences were obtained in all 3 orthogonal planes, pre-and post contrast administration. with and without 18mL CLARISCAN contrast material was administered intravenously for the contrast portion of the examination. Comparison: MR PELVIS W/WO 04/20/22 report only. no images. FINDINGS: Bulging of the prostate gland into the urinary bladder. This is seen in benign prostatic hypertrophy. Normal visualized colon. There are atherosclerotic vascular calcifications. SpaceOAR System is noted between the rectum and prostate gland. It has high T2 signal and a gel like appearance. There is no extra capsular extension. There are no abnormal lymph nodes. There is enlargement of the prostate gland. Prostate gland: The anterior fibromuscular stroma and central zone appear intact. The central gland demonstrates normal signal characteristics. Rectum is unremarkable. Levator ani muscle is not disrupted. The distal urethra is surrounded by the low T2 signal intensity muscle which is the external urethral sphincter as noted on the coronal images. The penile bulb is embraced by an intact inferomedial levator ani muscle. No areas of abnormal enhancement. Normal visualized neurovascular bundles. There is abnormal MRI signal in the right midgland transition zone TZa with extension to TZp on series 6 image 18, axial T2. It is 11mm in size. On T2 images, the area is homogeneous but moderately hypointense without extraprostatic extension, ill-defined margins. DWI: focal markedly hyperintense on high b-value DWI and markedly hypointense on ADC, image 107 series 9 and SE 901 IM: 14. There is no pelvic fluid. There is no pelvic mass lesion or lymphadenopathy. Normal visualized pelvic arteries. Normal osseous structures. Normal abdominal wall. MRI/Pelvis W/WO Contrast IMPRESSION: RIGHT lesion TZa with extension to TZp. Assessment: PIRADS 4 - High. Clinically significant cancer is likely to be present. Electronically Signed: James Barajas MD at 20:21 EDT ,
== END | disposition home or self-care (01) ==
PROVIDERS: PCP Student in an Organized Health Care Education/Training Program; Referring Provider Student in an Organized Health Care Education/Training Program; Visit Provider Student in an Organized Health Care Education/Training Program
DX: C61 Malignant neoplasm of prostate (principal)
CPT/HCPCS: 72197; 77014; 77290; A9575

== ENCOUNTER 2023-01-12 21:43 | Emergency (ER) | payer MEDICARE, OTHER, SELFPAY ==
[2023-01-12 21:43] VITALS: BP 156/73; PULSE 93; RESP 16; TEMP 36.6; O2SAT 100; BMI 32.2
--- NOTE | 2023-01-12 23:11 | EX.ED.DYSGE1 ---
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 He was confused and was having problems giving the bank his Social Security number on Tuesday. He had an infusion of his rheumatoid arthritis medication that he gets every 6 months on . This is when he was confused the following Tuesday, 2 days ago. He also has history of prostate carcinoma. He states that his numbness of his arms and legs has been since 2016, as he has history of Guillain-Shearer?. His is concerned that he may have COVID or influenza because after his infusion he is supposed to be feeling better with his joints and limbs, but he started to get body aches. He denies any fevers or chills, but he does feel flushed at times. Additionally, while he states his numbness in his arms and legs is chronic, he denies any dysuria or hematuria. He presents for evaluation of an infectious process causing his body aches and for him to feel worse, along with his memory problems. [facility] Medical History Abnormal pathology report from prostate needle biopsy Abnormal transrectal ultrasound of prostate Ambulates with cane BPH (benign prostatic hyperplasia) Cancer Cataract (lens) fragments in eye following cataract surgery Eczema Foot drop High cholesterol History of echocardiogram History of edema History of renal disease Hx of ingrown nail Hypertension Hypothyroid Loss of hearing Monoclonal paraproteinemia Neuropathy Osteopenia PSA elevation Rheumatoid arthritis Sciatic nerve pain Sleep apnea Vasculitis Walker as ambulation aid Wears glasses Home Medications multivitamin (Daily Multiple tablet) 1 ea PO DAILY 10/31/15 [History Last Taken Unknown] acetaminophen 500 mg tablet 1,000 mg PO Q8H PRN Pain 05/26/22 [History Last Taken Unknown] amlodipine 5 mg tablet 1 tab PO DAILY 05/26/22 [History Last Taken 08/04/22 1 TAB] ascorbic acid (vitamin C) 500 mg chewable tablet (Vitamin C) 500 mg PO DAILY 05/26/22 [History Last Taken Unknown] cholecalciferol (vitamin D3) 50 mcg (2,000 unit) capsule (Vitamin D3) 50 mcg PO DAILY 05/26/22 [History Last Taken Unknown] cyanocobalamin (vitamin B-12) 500 mcg tablet (Vitamin B-12) 500 mcg PO DAILY 05/26/22 [History Last Taken Unknown] levothyroxine 125 mcg tablet 1 tab PO DAILY 05/26/22 [History Last Taken 08/04/22 1 TAB] methylprednisolone sodium succ 125 mg/2 mL solution for injection 125 mg IV .[id number] 05/26/22 [History Last Taken Unknown] rituximab 10 mg/mL concentrate,intravenous 10 mg IV .[id number] 05/26/22 [History Last Taken Unknown] diphenhydramine HCl 25 mg capsule (Allergy (diphenhydramine)) 25 mg PO .[id number] PRN ONLY WITH INFUSIONS 06/16/22 [History Last Taken Unknown] ceramides 1,3,6-II (CeraVe topical cream) 1 applic topical DAILY 07/28/22 [History Last Taken Unknown] leuprolide (3 month) 22.5 mg (3 month) subcutaneous syringe (Eligard) 22.5 mg subcut .[id number] 07/28/22 [History Last Taken Unknown] omega-3 fatty acids 1,000 mg PO DAILY 07/28/22 [History Last Taken 07/29/22] triamcinolone acetonide 0.1 %-silicones topical kit 1 ea topical DAILY PRN Rash 07/28/22 [History Last Taken Unknown] ciprofloxacin HCl 500 mg tablet (Cipro) 500 mg PO BID #14 tabs 08/04/22 [Rx Last Taken Unknown] Allergy/AdvReac Type Severity Reaction Status Date / Time methotrexate Allergy Other Verified 01/12/23 21:47 NSAIDS (Non-Steroidal AdvReac Other Verified 01/12/23 21:47 Anti-Inflamma Penicillins AdvReac Other Verified 01/12/23 21:47 Family History Father Cancer Marcus Cell Cancer Arthritis Mother Arthritis Surgical History H/O removal of cyst History of ankle surgery Hx of prostate biopsy Hx of tonsillectomy Social History household members: spouse number of children: 2 Smoking Status: Former smoker pack-years: 1 ROS ROS ED ROS Narrative Constitutional: No fever, but feels flushed at times. No chills. HEENT: No sore throat. No neck pain. No loss of vision. No rhinorrhea. Cardiovascular: No chest pain. No palpitations. No pedal edema. Respiratory: No cough, no shortness of breath. Abdominal: No abdominal pain. No nausea. No vomiting. Genitourinary: No dysuria. No hematuria. Musculoskeletal: No myalgias. No arthralgias. Neurologic: No headaches. No dizziness. No lightheadedness. Positive confusion, paresthesias, chronic numbness of arms and legs. Skin: No rash. No change in color. Psychiatric: No depression. No anxiety. EXAM Physical Exam Narrative Exam Narrative: Afebrile. Vital signs noted. HEENT: Normocephalic. Atraumatic. PERRL, EOMI. Neck soft and supple. No point tenderness or step off. Cardiovascular: Regular rate and rhythm. No murmurs, rubs, or gallops appreciated. Respiratory: No tachypnea. Lungs clear to auscultation bilaterally. Gastrointestinal: Abdomen soft, nontender, with normoactive bowel sounds. No rebound or guarding. Neurological: Awake. Alert. Nonfocal, nonlateralizing. Skin: No rash. Normal color. No pallor. Musculoskeletal: No pedal edema. Full range of motion extremities. Const Vital Signs: 01/12/23 21:43 01/12/23 23:40 Temperature 97.8 F Temperature Source Temporal Pulse Rate 93 Respiratory Rate 16 Respiratory Effort Normal Respiratory Pattern Normal Blood Pressure 156/73 H Blood Pressure Mean 100 Pulse Ox 100 Oxygen Delivery Method Room Air MDM MDM MDM Narrative Medical decision making narrative: I do not feel that these are strokelike symptoms. I am unsure as to the cause of his reported confusion, but he states his memory has improved. Comprehensive work-up was pursued including CT of the brain, urinalysis to look for infection, chest x-ray also to look for pneumonia. I will check his electrolytes in the form of a CMP, and make sure he is not anemic although he has no clinical signs of anemia. I reviewed his laboratory work, he has a slight elevation in his white count of 11.1, he is not neutropenic. Hemoglobin normal at 14.2 with hematocrit normal at 43.1. Normal platelet count of 318. In review of his electrolyte panel, he has a chronic kidney injury and his creatinine is at baseline of 1.68, slightly elevated BUN of 23. Normal sodium of 138 normal potassium of 4.0. LFTs are grossly unremarkable except for slightly elevated alk phos of 151 which I think is nonspecific. Urinalysis was reviewed and is negative for ketones, no evidence of infection with 0 WBCs and 0 squamous epithelial cells, no bacteria. Chest x-ray reviewed by myself shows no evidence of pneumothorax or pneumonia. I reviewed the radiology report and they confirm no evidence of pneumonia. Additionally, I reviewed the CT of the brain radiology report and there is no evidence of mass or intracranial hemorrhage. Upon repeat examination, patient is resting comfortably. His COVID and influenza swabs were also negative in review. At this point in time, I am unsure as to the cause of his reported confusion, but he does state that he feels that he is improving. I feel he be discharged safely home with follow-up to his providers. Return instructions to the emergency department were reviewed. Disposition is discharged home in stable condition. Lab Data Attestation: I reviewed the patient's lab results. Labs: Laboratory Results - last 24 hr 01/12/23 01/12/23 01/12/23 23:50 23:50 23:55 WBC 11.1 H RBC 4.46 L Hgb 14.2 Hct 43.1 MCV 96.6 H MCH 31.8 MCHC 32.9 RDW Std Deviation 46.5 H RDW Coeff of Jake 13.0 Plt Count 318 MPV 9.1 Sodium 138 Potassium 4.0 Chloride 104 Carbon Dioxide 24.0 Anion Gap 10 BUN 23 H Creatinine 1.68 H Estim Creat Clear Calc 34.97 Est GFR (MDRD) Af Amer 51 L Est GFR (MDRD) Non-Af 42 L BUN/Creatinine Ratio 13.7 Glucose 116 H Calcium 9.5 Total Bilirubin 0.30 AST 26 ALT 55 Alkaline Phosphatase 151 H Total Protein 7.8 Albumin 3.5 Globulin 4.3 H Albumin/Globulin Ratio 0.8 L Urine Color Yellow Urine Clarity Clear Urine pH 6.0 Ur Specific [place] 1.015 Urine Protein 30 H Urine Glucose (UA) Normal Urine Ketones Negative Urine Occult Blood 10 H Urine Nitrite Negative Urine Bilirubin Negative Urine Urobilinogen Normal Ur Leukocyte Esterase Negative Urine RBC 0 SEEN Urine WBC 0 SEEN Ur Squamous Epith Cells 0 SEEN Urine Bacteria 0 SEEN Urine Mucus 0 SEEN Radiography Diagnostic Testing: Clinical Impression(s) from Imaging Studies Brain CT 01/13/23 00:00 IMPRESSION: No acute intracranial abnormality. Minimal chronic changes for age. Electronically Signed: Gabrielle Warren MD at 0:49 EST , Chest X-Ray 01/13/23 00:04 IMPRESSION: 1. No acute intrathoracic abnormality. 2. Moderate right shoulder degenerative changes. Electronically Signed: Gabrielle Warren MD at 0:55 EST , Discharge Plan Triage Chief Complaint: General Illness ED Provider: Bro Main Dx/Rx/DC Orders Clinical Impression: Confusion, Memory change, History of rheumatoid arthritis Instructions: ED Confusion Prescriptions: No Action diphenhydramine HCl [Allergy (diphenhydramine)] 25 mg capsule 25 mg PO .[id number] PRN (Reason: ONLY WITH INFUSIONS) multivitamin [Daily Multiple] 1 EACH tablet 1 ea PO DAILY amlodipine 5 mg tablet 1 tab PO DAILY Label Comments: TAKE 1 TABLET BY MOUTH DAILY acetaminophen 500 mg Tablet 1,000 mg PO Q8H PRN (Reason: Pain) cyanocobalamin (vitamin B-12) [Vitamin B-12] 500 mcg Tablet 500 mcg PO DAILY levothyroxine 125 mcg tablet 1 tab PO DAILY Label Comments: TAKE 1 TABLET BY MOUTH DAILY ascorbic acid (vitamin C) [Vitamin C] 500 mg Tablet,Chewable 500 mg PO DAILY rituximab 10 mg/mL Concentrate 10 mg IV .[id number] Rx Instructions: Every 6 months cholecalciferol (vitamin D3) [Vitamin D3] 50 mcg (2,000 unit) Capsule 50 mcg PO DAILY methylprednisolone sodium succ 125 mg/2 mL Recon Soln 125 mg IV .[id number] Rx Instructions: Every 6 months Eligard (3 month) 22.5 mg Syringe 22.5 mg SUBCUT .[id number] omega-3 fatty acids Capsule 1,000 mg PO DAILY Label Comments: STOP [address] LUCIAN CeraVe Cream 1 applic TOPICAL DAILY triamcinolone aceton-silicones 0.1 % Kit 1 ea TOPICAL DAILY PRN (Reason: Rash) ciprofloxacin HCl [Cipro] 500 mg tablet 500 mg PO BID Qty: 14 0RF Primary Care Provider: Brown Montiel Referrals: Brown Montiel DO [Primary Care Provider] - Activity Restrictions/Additional Instructions: Your work-up today in the emergency department was negative. Follow-up with your mechanical shop laborer as needed. Disposition Disposition: Home, Self Care
[2023-01-12] MEDS: 0.9% Normal Saline 1,000 ML 1000 ML IV (23:58)
--- NOTE | 2023-01-13 | CT_ITS ---
EXAM: CT HEAD WITHOUT INTRAVENOUS CONTRAST CLINICAL INDICATION: paresthesias TECHNIQUE: Multiple axial images were obtained of the head without intravenous contrast. This CT exam was performed using one or more of the following dose reduction techniques: automated exposure control, adjustment of the mA and/or kV according to patient size, and/or use of iterative reconstruction technique. This report was created using [employer] report generation technology. RADIATION DOSE: CTDIvol = 44.99 mGy, DLP = 829.85 mGy-cm. COMPARISON: None. FINDINGS: BRAIN AND EXTRA-AXIAL SPACES: Mild cerebral volume loss. No intra- or extra-axial hemorrhage. No evidence of acute infarct. No intracranial mass or mass effect. There is preservation of the ramirez/white matter interface. Posterior fossa structures are unremarkable. Ventricles are appropriate for age. No hydrocephalus. Basal cisterns are patent. BONES/JOINTS: Unremarkable. No discrete lytic or blastic abnormalities. VASCULATURE: Mild cavernous carotid calcifications. SINUSES: Unremarkable as visualized. Clear. MASTOID AIR CELLS: Unremarkable. Clear. ORBITS: Visualized globes, extraocular muscles, optic nerves and retrobulbar fat appear unremarkable. OTHER FINDINGS: Contrast:. CT/Brain/Head without Contrast IMPRESSION: No acute intracranial abnormality. Minimal chronic changes for age. Electronically Signed: Gabrielle Warren MD at 0:49 EST ,
[2023-01-13 00:01] LABS: Hematocrit 43.1 % (40-54); Hemoglobin 14.2 g/dL (13.0-16.5); Mean Corp Hgb Conc 32.9 g/dL (32-36); Mean Corpuscular Hgb 31.8 pg (27.0-32.0); Mean Corpuscular Volume 96.6 fL (80-94); Mean Platelet Vol. 9.1 fl (6.2-12.0); Platelet Count 318 K/mm3 (150-450); RBC Distribution Width SD 46.5 fl (35.1-43.9); Red Blood Count 4.46 M/mm3 (4.6-6.2); White Blood Count 11.1 K/mm3 (4.4-11.0)
--- NOTE | 2023-01-13 00:04 | RAD_ITS ---
EXAM: XR CHEST, 1 VIEW CLINICAL INDICATION: cad TECHNIQUE: Frontal view of the chest. This report was created using [email or web address] report generation technology. COMPARISON: None. FINDINGS: LUNGS AND PLEURAL SPACES: Unremarkable. No pneumothorax. No significant infiltrates or effusions. HEART: Unremarkable. Cardiac silhouette not enlarged. MEDIASTINUM: Central airways and mediastinal contour are unremarkable. BONES/JOINTS: Moderate degenerative changes at the right glenohumeral joint. SOFT TISSUES: Unremarkable. VASCULATURE: Mildly tortuous contour of the descending thoracic aorta, no convincing evidence of aneurysm. UPPER ABDOMEN: Moderate elevation of the right hemidiaphragm, likely chronic. RAD/Chest 1 View (Portable) IMPRESSION: 1. No acute intrathoracic abnormality. 2. Moderate right shoulder degenerative changes. Electronically Signed: Gabrielle Warren MD at 0:55 EST ,
[2023-01-13 00:05] LABS: Bacteria 0 SEEN /hpf (None Seen); Mucous, Urine 0 SEEN /hpf (<or=2+); Red Blood Cells-Urine 0 SEEN /hpf (0-5); Squamous Epithelial Cells - UA 0 SEEN /hpf (0-5); White Blood Cells 0 SEEN /hpf (0-5)
[2023-01-13 00:16] LABS: Color, Urine Yellow (Yellow); Glucose, Dipstick Normal (Normal); Ketone-Dipstick Negative (Negative); Leukocyte Esterase-Dipstick Negative /ul (Negative); Nitrite-Dipstick Negative (Negative); Occult Blood-Urine 10 /ul (Negative); Protein-Dipstick 30 mg/dl (Negative); Specific Gravity, Urine 1.015 (1.002-1.030); Urine Bilirubin Dipstick Negative (Negative); Urine Clarity Clear (Clear); Urine Urobilinogen Normal (Normal)
[2023-01-13 00:23] LABS: ALB/GLOB Ratio 0.8 RATIO (0.9-2.4); AST(SGOT) 26 U/L (15-37); Alanine Aminotransfer ALT/SGPT 55 U/L (16-61); Albumin, Serum 3.5 g/dL (3.2-5.0); Alkaline Phosphatase 151 U/L (45-117); Anion Gap 10 (5-15); BUN 23 mg/dL (7-18); BUN/Creat Ratio 13.7 RATIO (10-20); Calcium,Total 9.5 mg/dL (8.5-10.1); Chloride 104 mmol/L (98-107); Creatinine, Serum 1.68 mg/dL (0.70-1.30); EST Glomerular Filtration Rate 42 mL/min (>60); Est Glom Filt Rate - Afr Amer 51 mL/min (>60); Estimated Creatinine Clearance 34.97 ml/min; Globulin 4.3 g/dL (2.2-4.2); Glucose 116 mg/dL (74-106); Protein, Total 7.8 g/dL (6.4-8.2); Sodium Level 138 mmol/L (136-145)
[2023-01-13 02:04] VITALS: BP 156/73; PULSE 80; RESP 15; O2SAT 97
== END 2023-01-13 02:04 | disposition home or self-care (01) ==
PROVIDERS: Emergency Provider Emergency Medicine; PCP Student in an Organized Health Care Education/Training Program; Visit Provider Emergency Medicine
DX: R41.0 Disorientation, unspecified (principal); M06.9 Rheumatoid arthritis, unspecified; R41.3 Other amnesia; E78.00 Pure hypercholesterolemia, unspecified; I10 Essential (primary) hypertension; R47.01 Aphasia; Z87.891 Personal history of nicotine dependence
CPT/HCPCS: 70450; 71045; 80053; 81001; 85027; 87428; 96360; 96361; 99283; J7030; A4216

== ENCOUNTER → 2023-03-28 | Outpatient (CLI) | payer MEDICARE, OTHER, SELFPAY ==
[2023-03-28 09:01] LABS: PSA,Total- Diagnostic < 0.01 ng/mL (0.0-4.0)
== END | disposition home or self-care (01) ==
LOC: LAB 07:57
PROVIDERS: PCP Student in an Organized Health Care Education/Training Program; Referring Provider Urology; Visit Provider Urology
DX: C61 Malignant neoplasm of prostate (principal)
CPT/HCPCS: 36415; 84153

== ENCOUNTER → 2023-06-07 | Outpatient (CLI) | payer MEDICARE, OTHER, SELFPAY | END | disposition home or self-care (01) | PROVIDERS: PCP Student in an Organized Health Care Education/Training Program; Referring Provider Podiatrist; Visit Provider Podiatrist | DX: L03.032 Cellulitis of left toe (principal) | CPT/HCPCS: 87070; 87075; 87077; 87186; 87205 ==

== ENCOUNTER → 2023-09-28 | Outpatient (CLI) | payer MEDICARE, OTHER, SELFPAY ==
[2023-09-28 12:24] LABS: PSA,Total- Diagnostic 0.06 ng/mL (0.0-4.0)
== END | disposition home or self-care (01) ==
LOC: LAB 10:07
PROVIDERS: PCP Student in an Organized Health Care Education/Training Program; Referring Provider Urology; Visit Provider Urology
DX: C61 Malignant neoplasm of prostate (principal)
CPT/HCPCS: 36415; 84153

== ENCOUNTER → 2023-11-30 | Outpatient (CLI) | payer MEDICARE, OTHER, SELFPAY ==
[2023-11-30 09:52] LABS: Free T3 2.2 pg/mL (2.18-3.98); T4 Free Direct 1.14 ng/dL (0.76-1.46); Thyroid Stim Hormone (TSH) 0.77 uIU/mL (0.358-3.74)
== END | disposition home or self-care (01) ==
PROVIDERS: PCP Student in an Organized Health Care Education/Training Program; Referring Provider Student in an Organized Health Care Education/Training Program; Visit Provider Student in an Organized Health Care Education/Training Program
DX: E03.9 Hypothyroidism, unspecified (principal)
CPT/HCPCS: 36415; 84439; 84443; 84481

== ENCOUNTER → 2024-03-28 | Outpatient (CLI) | payer MEDICARE, OTHER, SELFPAY ==
[2024-03-28 11:22] LABS: PSA,Total- Diagnostic 0.07 ng/mL (0.0-4.0)
== END | disposition home or self-care (01) ==
LOC: LAB 09:46
PROVIDERS: PCP Student in an Organized Health Care Education/Training Program; Visit Provider Nurse Practitioner
DX: C61 Malignant neoplasm of prostate (principal)
CPT/HCPCS: 36415; 84153

== ENCOUNTER → 2024-07-09 | Outpatient (CLI) | payer MEDICARE, OTHER, SELFPAY ==
[2024-07-09 09:55] LABS: PSA,Total- Diagnostic 0.08 ng/mL (0.0-4.0)
== END | disposition home or self-care (01) ==
LOC: LAB 09:07
PROVIDERS: PCP Student in an Organized Health Care Education/Training Program; Referring Provider Student in an Organized Health Care Education/Training Program; Visit Provider Student in an Organized Health Care Education/Training Program
DX: C61 Malignant neoplasm of prostate (principal)
CPT/HCPCS: 36415; 84153

== ENCOUNTER 2024-08-21 02:29 | Emergency (ER) | payer MEDICARE, OTHER, SELFPAY ==
[2024-08-21] VITALS (34 sets, daily range): BP systolic 51–134; BP diastolic 18–93; PULSE 31–157; RESP 12–37; TEMP 37.9–38.2; O2SAT 75–98; BMI 32.8
--- NOTE | 2024-08-21 02:38 | EKG12_ITS ---
Test Reason : Blood Pressure : / mmHG Vent. Rate : 148 BPM Atrial Rate : 051 BPM P-R Int : 112 ms QRS Dur : 084 ms QT Int : 324 ms P-R-T Axes : 266 239 054 degrees QTc Int : 508 ms Critical Test Result: High HR , STEMI Undetermined rhythm Right superior axis deviation Pulmonary disease pattern Possible Right ventricular hypertrophy ST elevation consider inferior injury or acute infarct ACUTE AK / STEMI Confirmed by Brown Concepcion ([id number]), video editor SHAREE WOOD ([id number]) on 08/22/2024 5:25:59 AM Referred By: Confirmed By:Brown Concepcion
--- NOTE | 2024-08-21 02:42 | RAD_ITS ---
INDICATION: SOB EXAMINATION/TECHNIQUE: X-RAY - XR Chest 1 View AP portable. 3:13 AM COMPARISON: 01/13/2023 FINDINGS: LINES/DEVICES: None. LUNGS: Diffuse alveolar infiltrates bilaterally, greater on the left. Small bilateral pleural effusions. No pneumothorax. MEDIASTINUM: Unremarkable. CARDIAC SILHOUETTE: Not enlarged. BONES AND SOFT TISSUES: No acute abnormalities. RAD/Chest 1 View (Portable) IMPRESSION: Bilateral airspace disease and small pleural effusions. Findings may be due to pneumonia or asymmetric pulmonary edema. Electronically Signed: Rachel Gutierrez MD at 3:55 EDT ,
[2024-08-21] MEDS: 0.9% Normal Saline (1000mL) 1,000 ML 999 ML IV ×2 (02:47→07:15)
[2024-08-21 02:53] LABS: Absolute Lymphocyte Count 0.74 X10^3/uL (0.83-4.51); Absolute Neutrophil Count 12.8 X10^3/uL (2.0-7.7); Basophil# 0.05 X10^3/uL; Basophil% 0.3 % (0-1); Eosinophil# 0.01 X10^3/uL; Eosinophils% 0.1 % (0-5); Hematocrit 46.3 % (40-54); Hemoglobin 15.4 g/dL (13.0-16.5); Lymphocyte # 0.74 X10^3/ul (0.83-4.51); Mean Corp Hgb Conc 33.3 g/dL (32-36); Mean Corpuscular Volume 96.1 fL (80-94); Mean Platelet Vol. 9.2 fl (6.2-12.0); Monocyte# 1.13 X10^3/uL; Monocyte% 7.7 % (0-10); NRBC Flagged by Analyzer 0 % (0-5); Neutrophil # 12.75 X10^3/uL (2.7-7.7); Neutrophil % 86.5 % (47-70); Platelet Count 338 K/mm3 (150-450); RBC Distribution Width CV 13.7 % (11.6-14.6); RBC Distribution Width SD 48.9 fl (35.1-43.9); Red Blood Count 4.82 M/mm3 (4.6-6.2); White Blood Count 14.7 K/mm3 (4.4-11.0)
--- NOTE | 2024-08-21 02:53 | ED.VIS.DYS ---
HPI History of Present Illness Chief Complaint: Shortness of Breath Narrative Narrative: Chief complaint and HPI: Shortness of breath. 78-year-old male with history of RA on rituximab, HTN presents for evaluation of shortness of breath. Patient states for the past 2 days he has had cold-like symptoms including cough and congestion. Patient states he has progressively become more short of breath. states that it is worsened since 7 PM this evening. On EMS arrival, patient's pulse ox was in the high 70s. He does not wear oxygen at home. He endorses chest tightness. Endorses fever, last took Tylenol at 1 AM. Denies any headache, abdominal pain, nausea, vomiting, diarrhea, dysuria. States he does have some chest tightness on the right. Review of systems: See HPI Medications: As listed on the chart Allergies: As listed on the chart PFSH: Per chart Vital signs: As listed on the chart. Reviewed. Physical exam: Gen: A&O x3 Head: Normocephalic, atraumatic Eyes: No sclera icterus, conjunctiva clear, PERRL, EOMI ENT: Dry mucous membrane Neck: Trachea midline, No JVD CV: Tachycardic, regular rhythm, no murmurs, no peripheral edema Resp: Lungs coarse bilaterally with mild wheeze, diminished in the bilateral bases, dyspneic, tachypneic, hypoxic at 78% on room air GI: Abd soft, non-distended, non-tender, no r/r/g Musc: Full ROM, no deformity Skin: Warm, dry Neuro: Alert, oriented, grossly intact, sensation intact Psych: Cooperative, appropriate mood and affect [facility] Medical History (Updated 08/21/24 @ 06:[address] Beck Chávez, ) Cataract (lens) fragments in eye following cataract surgery Abnormal pathology report from prostate needle biopsy Abnormal transrectal ultrasound of prostate PSA elevation BPH (benign prostatic hyperplasia) Loss of hearing Wears glasses Cancer Eczema Ambulates with cane Walker as ambulation aid Sciatic nerve pain Vasculitis Osteopenia Rheumatoid arthritis Foot drop Neuropathy Monoclonal paraproteinemia Sleep apnea High cholesterol Hypothyroid History of edema History of echocardiogram Hypertension History of renal disease Hx of ingrown nail Home Medications ?Medication ?Instructions ?Recorded ?Last Taken ?Type acetaminophen 500 mg tablet 1,000 mg PO Q8H PRN Pain 05/26/22 Unknown History amlodipine 5 mg tablet 1 tab PO DAILY 05/26/22 08/04/22 History 1 TAB ascorbic acid (vitamin C) 500 mg 500 mg PO DAILY 05/26/22 Unknown History chewable tablet (Vitamin C) cholecalciferol (vitamin D3) 50 50 mcg PO DAILY 05/26/22 Unknown History mcg (2,000 unit) capsule (Vitamin D3) cyanocobalamin (vitamin B-12) 500 500 mcg PO DAILY 05/26/22 Unknown History mcg tablet (Vitamin B-12) levothyroxine 125 mcg tablet 1 tab PO DAILY 05/26/22 08/04/22 History 1 TAB methylprednisolone sodium succ 125 125 mg IV .[id number] 05/26/22 Unknown History mg/2 mL solution for injection rituximab 10 mg/mL 10 mg IV .[id number] 05/26/22 Unknown History concentrate,intravenous diphenhydramine HCl 25 mg capsule 25 mg PO .[id number] PRN ONLY WITH 06/16/22 Unknown History (Allergy (diphenhydramine)) INFUSIONS ceramides 1,3,6-II (CeraVe topical 1 applic topical DAILY 07/28/22 Unknown History cream) omega-3 fatty acids 1,200 mg PO DAILY 07/28/22 07/29/22 History triamcinolone acetonide 0.1 1 ea topical DAILY PRN Rash 07/28/22 Unknown History %-silicones topical kit tamsulosin 0.4 mg capsule 0.4 mg PO DAILY 05/19/23 Unknown History Allergy/AdvReac Type Severity Reaction Status Date / Time methotrexate Allergy Other Verified 08/21/24 02:32 NSAIDS (Non-Steroidal AdvReac Other Verified 08/21/24 02:32 Anti-Inflamma Penicillins AdvReac Other Verified 08/21/24 02:32 Family History Father Cancer Marcus Cell Cancer Arthritis Mother Arthritis Surgical History Hx of prostate biopsy Hx of tonsillectomy H/O removal of cyst History of ankle surgery Social History household members: spouse number of children: 2 Smoking Status: Former smoker pack-years: 1 EXAM Physical Exam Const Vital Signs: 08/21/24 02:33 08/21/24 02:36 08/21/24 02:39 Temperature 100.3 F H 100.7 F H Temperature Source Axillary Axillary Pulse Rate 129 H 132 H Pulse Rate [1] Respiratory Rate 35 H 35 H Respiratory Effort Short of Breath Respiratory Depth Deep Respiratory Pattern Tachypnea Blood Pressure 112/72 112/72 Blood Pressure [1] Blood Pressure Mean 85 85 Pulse Ox 78 93 Oxygen Delivery Method Room Air High Flow Bi-pap Oxygen Flow Rate (L/min) 15 Fraction of Inspired Oxygen (FIO2) 08/21/24 02:40 08/21/24 02:41 08/21/24 02:57 Temperature Temperature Source Pulse Rate 123 H 109 H Pulse Rate [1] Respiratory Rate 31 H 30 H Respiratory Effort Respiratory Depth Respiratory Pattern Tachypnea Tachypnea Blood Pressure Blood Pressure [1] Blood Pressure Mean Pulse Ox 98 Oxygen Delivery Method Bi-pap Oxygen Flow Rate (L/min) Fraction of Inspired Oxygen (FIO2) 60 08/21/24 03:31 08/21/24 03:33 08/21/24 04:00 Temperature 100.6 F H Temperature Source Axillary Pulse Rate 111 H 111 H 110 H Pulse Rate [1] Respiratory Rate 29 H 29 H 27 H Respiratory Effort Respiratory Depth Respiratory Pattern Blood Pressure 90/53 L 90/53 L 92/58 L Blood Pressure [1] Blood Pressure Mean 65 65 69 Pulse Ox 94 94 92 Oxygen Delivery Method Bi-pap Bi-pap Bi-pap Oxygen Flow Rate (L/min) Fraction of Inspired Oxygen (FIO2) 08/21/24 05:00 08/21/24 05:00 08/21/24 05:06 Temperature Temperature Source Pulse Rate 117 H 112 H Pulse Rate [1] Respiratory Rate 30 H 28 H Respiratory Effort Respiratory Depth Respiratory Pattern Blood Pressure 88/59 L 86/59 L 81/59 L Blood Pressure [1] Blood Pressure Mean 68 68 66 Pulse Ox 95 92 Oxygen Delivery Method Bi-pap Bi-pap Oxygen Flow Rate (L/min) Fraction of Inspired Oxygen (FIO2) 08/21/24 05:15 08/21/24 05:17 08/21/24 05:18 Temperature Temperature Source Pulse Rate 112 H 110 H 110 H Pulse Rate [1] Respiratory Rate 30 H 29 H 29 H Respiratory Effort Respiratory Depth Respiratory Pattern Blood Pressure 84/59 L 86/61 L 91/61 Blood Pressure [1] Blood Pressure Mean 67 69 69 Pulse Ox 91 94 92 Oxygen Delivery Method Bi-pap Bi-pap Bi-pap Oxygen Flow Rate (L/min) Fraction of Inspired Oxygen (FIO2) 08/21/24 05:19 08/21/24 05:20 08/21/24 05:28 Temperature Temperature Source Pulse Rate 112 H 112 H 120 H Pulse Rate [1] Respiratory Rate 27 H 28 H 35 H Respiratory Effort Respiratory Depth Respiratory Pattern Blood Pressure 80/59 L 87/60 L 97/64 Blood Pressure [1] Blood Pressure Mean 67 70 74 Pulse Ox 91 92 93 Oxygen Delivery Method Bi-pap Bi-pap Bi-pap Oxygen Flow Rate (L/min) Fraction of Inspired Oxygen (FIO2) 08/21/24 05:30 08/21/24 05:45 08/21/24 05:54 Temperature Temperature Source Pulse Rate 119 H 157 H 135 H Pulse Rate [1] Respiratory Rate 34 H 29 H 18 Respiratory Effort Respiratory Depth Respiratory Pattern Blood Pressure 129/84 H 125/90 H Blood Pressure [1] Blood Pressure Mean 96 102 Pulse Ox 90 84 Oxygen Delivery Method Bi-pap Bi-pap Ambu-Bag Oxygen Flow Rate (L/min) Fraction of Inspired Oxygen (FIO2) 08/21/24 05:55 08/21/24 06:00 08/21/24 06:15 Temperature Temperature Source Pulse Rate 139 H 115 H Pulse Rate [1] Respiratory Rate 30 H 32 H Respiratory Effort Short of Breath Respiratory Depth Deep Respiratory Pattern Tachypnea Blood Pressure 134/93 H 92/82 H Blood Pressure [1] Blood Pressure Mean 106 87 Pulse Ox 82 Oxygen Delivery Method Mechanical Ventilator Mechanical Ventilator Oxygen Flow Rate (L/min) Fraction of Inspired Oxygen (FIO2) 08/21/24 06:16 08/21/24 06:30 08/21/24 06:31 Temperature Temperature Source Pulse Rate 131 H 124 H 123 H Pulse Rate [1] Respiratory Rate 28 H 30 H 30 H Respiratory Effort Respiratory Depth Respiratory Pattern Tachypnea Blood Pressure 58/39 L 53/40 L Blood Pressure [1] Blood Pressure Mean 46 45 Pulse Ox 81 75 76 Oxygen Delivery Method Mechanical Ventilator Mechanical Ventilator Oxygen Flow Rate (L/min) Fraction of Inspired Oxygen (FIO2) 100 08/21/24 06:42 08/21/24 06:43 08/21/24 06:45 Temperature Temperature Source Pulse Rate 146 H 142 H Pulse Rate [1] 138 H Respiratory Rate 33 H 34 H Respiratory Effort Respiratory Depth Respiratory Pattern Blood Pressure 66/18 L 51/41 L Blood Pressure [1] 53/40 L Blood Pressure Mean 33 46 Pulse Ox Oxygen Delivery Method High Flow Mechanical Ventilator Mechanical Ventilator Oxygen Flow Rate (L/min) 15 Fraction of Inspired Oxygen (FIO2) 08/21/24 06:50 08/21/24 06:55 08/21/24 07:00 Temperature Temperature Source Pulse Rate 130 H 125 H 109 H Pulse Rate [1] Respiratory Rate 33 H 33 H 37 H Respiratory Effort Respiratory Depth Respiratory Pattern Blood Pressure 64/41 L 59/34 L 66/58 L Blood Pressure [1] Blood Pressure Mean 50 43 62 Pulse Ox 79 82 81 Oxygen Delivery Method Oxygen Flow Rate (L/min) Fraction of Inspired Oxygen (FIO2) 08/21/24 07:04 08/21/24 07:10 08/21/24 07:15 Temperature Temperature Source Pulse Rate 121 H 110 H 102 H Pulse Rate [1] Respiratory Rate 33 H 30 H 34 H Respiratory Effort Respiratory Depth Respiratory Pattern Blood Pressure 66/58 L 106/84 H 94/72 Blood Pressure [1] Blood Pressure Mean 60 91 80 Pulse Ox 79 82 78 Oxygen Delivery Method Mechanical Ventilator Oxygen Flow Rate (L/min) Fraction of Inspired Oxygen (FIO2) 08/21/24 07:30 Temperature Temperature Source Pulse Rate 31 L Pulse Rate [1] Respiratory Rate 14 Respiratory Effort Respiratory Depth Respiratory Pattern Blood Pressure Blood Pressure [1] Blood Pressure Mean Pulse Ox Oxygen Delivery Method Oxygen Flow Rate (L/min) Fraction of Inspired Oxygen (FIO2) MDM MDM MDM Narrative Medical decision making narrative: 78-year-old male with history of RA on rituximab presents for evaluation of shortness of breath and cold-like symptoms including cough, congestion, fever. On presentation patient is tachycardic into the 130s, tachypneic into the 40s/30s, febrile. Patient has an allergy to aspirin. Just took Tylenol at 1 AM. Patient was placed on BiPAP for increased work of breathing. Oxygenation and tachypnea improved. Differential diagnosis includes but is not limited to pneumonia, COVID-19 infection, viral illness, CAD, CHF, electrolyte abnormality. Patient was made a sepsis alert. 30 cc/kg bolus was not ordered due to respiratory distress. NS bolus ordered and will reassess. Rocephin and azithromycin were ordered for possible community-acquired pneumonia. Patient states he has a penicillin allergy but states that it was a local reaction as a child. Sepsis workup ordered. BiPAP settings are 14/8. EKG reviewed see below. New ST depressions on EKG as well as incomplete right bundle branch block. CBC with leukocytosis of 14.7. No anemia. Platelets unremarkable. INR within normal range. CMP shows hyponatremia at 132 with SANDY of a creatinine of 2.6. Patient's baseline is about 1.6 on chart review. Lactic acid 2.7. Patient is receiving fluids. Will be cautious with fluids however given his respiratory distress. His BNP is elevated at 615. His troponin is 7853 this is consistent with ischemia from NSTEMI. Chest x-ray shows bilateral airspace disease and small pleural effusions. Suspect pneumonia with some possible pulmonary edema. Patient's antibiotic broadened with vancomycin given his immunocompromised state. Patient has severe sepsis secondary to pneumonia with multiorgan failure. He will require admission. Patient was discussed with the hospitalist service here Dr. Haque. He recommends transfer to a tertiary care center however would like me to discuss this with cardiology. His COVID, flu, RSV is negative. I spoke with our rn recovery Dr. Concepcion. He agrees that patient would benefit from transfer. Patient follows with [facility] for his RA as well as nephrology therefore we will arrange transfer to their critical care unit. I spoke originally to Dr. Scanlon in the cardiac ICU he recommends MICU admit given patient does not have a STEMI and no emergent cardiac catheterization at this time. I spoke with the MICU physician at [facility]. He agrees with transfer however no bed is available at their facility. I was then referred to another [facility] facility and spoke to the MICU physician there Dr. Peralta. He accepted admission but no beds available at this time and recommends admission to our ICU until patient can be transferred. Dr. Haque was made aware of this. He accepted but recommended transfer to another facility. Will try [facility]. Patient became hypotensive requiring pressure support with Levophed. He will require central line therefore heparin for NSTEMI withheld until central line in place. Patient and consented to line. At this point in time we had an extensive discussion about CODE STATUS. At this time patient is to be full code. Patient became tachypneic, hypoxic and began to tire out on BiPAP. Patient was subsequently intubated. Pulmonary edema was encountered during intubation. Patient's clinical condition ultimately deteriorated despite supportive measures into PEA arrest. ACLS was initiated with CPR and 1 dose of epinephrine given. Pulses were regained and patient entered into unstable ventricular tachycardia. Patient was synchronized cardioverted with 200 J. He entered into a sinus tachycardia in the 140s. EKG was obtained showing inferior STEMI. STEMI alert was called and I spoke to the analog circuit designer on-call. He agrees patient is not a candidate for emergent cardiac catheterization at this time. He agrees with starting heparin after central line placement. Patient remains hypotensive. Epinephrine drip and Levophed drip running. Will add on vasopressin and start stress dose steroids. Patient difficult to ventilate despite ARDS protocol with a PEEP of 12. Will repeat ABG. Given patient's deterioration, a discussion was had with patient's . would like to continue supportive care but changed CODE STATUS to DNR okay to intubate. While setting up for central line, patient became bradycardic into asystole. ACLS protocol was not started per 's wishes. Ultrasound showed no cardiac cavity. Patient on 08/21/2024 at 0727. ABG drawn prior to patient expiring showed severe metabolic acidosis EKG: Interpreted by me/EM physician:EKG shows sinus tachycardia with heart rate of 107. He has ST depressions in V3 through V6. No ST elevation. This is new from his previous EKG in April 2022. EKG shows a sinus sinus tachycardia with heart rate of 148. Inferior STEMI. Diagnostic: Interpreted by me/EM physician: Bilateral pulmonary infiltrates suspect pneumonia. Cannot rule out pulmonary edema. No pneumothorax. Endotracheal Intubation Indication: Respiratory Distress Consent: Verbal consent obtained by patient and his Procedure: The patient was on a outside contractor sales including continuous pulse oximetry. Rapid Sequence Intubation was conducted. The patient received 20 mg of Etomidate for induction and 100mg of Rocuronium for adequate paralysis. Cricoid pressure was maintained from the time the induction agent was given to the time of cuff balloon inflation. Using a glide laryngoscope and a size 7.5 endotracheal tube with stylet, the patient was intubated. Patient required suctioning throughout the entire intubation given his pink frothy sputum/pulmonary edema. The stylet was removed, and the cuff balloon was inflated. Appropriate endotracheal tube position was confirmed by direct visualization of vocal cord passage, fogging of the tube, CO2 colorimetric indicator and symmetric breath sounds. The tube was secured at 23 cm at the lips. 115 minutes of critical care time utilized in managing the patient. This was due to high probability of and deterioration of the patient based on the patient's condition and excludes any separately billable procedures. Impression: 1. Acute hypoxic respiratory failure requiring mechanical ventilation 2. Septic shock secondary to pneumonia requiring vasopressor support 3. ARDS 4. Pulmonary edema/acute heart failure 5. Inferior STEMI 6. NSTEMI 7. SANDY on CKD 8. Unstable ventricular tachycardia status post synchronized cardioversion 9. Metabolic acidosis/lactic acidosis 10. Lab Data Labs: Laboratory Results - last 24 hr 08/21/24 08/21/24 08/21/24 02:45 04:46 06:27 WBC 14.7 H RBC 4.82 Hgb 15.4 Hct 46.3 MCV 96.1 H MCH 32.0 MCHC 33.3 RDW Std Deviation 48.9 H RDW Coeff of Jake 13.7 Plt Count 338 MPV 9.2 Immature Gran % (Auto) 0.400 Neut % (Auto) 86.5 H Lymph % (Auto) 5.0 L [place] % (Auto) 7.7 Eos % (Auto) 0.1 Baso % (Auto) 0.3 Absolute Neuts (auto) 12.8 H Absolute Lymphs (auto) 0.74 L Nucleated RBC % 0 PT 14.5 INR 1.1 APTT 22.8 L Sodium 132 L Potassium 4.6 Chloride 102 Carbon Dioxide 21.0 Anion Gap 9 BUN 29 H Creatinine 2.60 H Estim Creat Clear Calc 26.15 Est GFR (MDRD) Af Amer 31 L Est GFR (MDRD) Non-Af 26 L BUN/Creatinine Ratio 11.2 Glucose 138 H Lactic Acid 2.7 H* Calcium 9.3 Total Bilirubin 0.80 AST 57 H ALT 45 Alkaline Phosphatase 111 Troponin I High Sens 7853 H* 7346 H* B-Natriuretic Peptide 615.1 H Total Protein 7.6 Albumin 3.0 L Globulin 4.6 H Albumin/Globulin Ratio 0.7 L Urine Color Yellow Urine Clarity Clear Urine pH 5.0 Ur Specific Exchange 1.015 Urine Protein 30 H Urine Glucose (UA) Normal Urine Ketones 5 H Urine Occult Blood Negative Urine Nitrite Negative Urine Bilirubin Negative Urine Urobilinogen Normal Ur Leukocyte Esterase 25 H Urine RBC 0 SEEN Urine WBC 0-5 SEEN Ur Squamous Epith Cells 0 SEEN Urine Bacteria 0 SEEN Urine Mucus 0 SEEN ABG Data ABG results: ABG 08/21/24 08/21/24 03:02 07:34 Specimen Type ART ART Sample Site R Radial L Brach pH 7.44 6.97 L* Bicarbonate Actual 18.8 L 10.7 L Total CO2 20 12 Base Excess -5 L -21 L O2 Saturation 93 L 71 L O2 % 50.0 100.0 ABG pCO2 27.5 L 45.9 H ABG pO2 62 L 58 L Cedric Test Positive Respiration Rate 12 12 O2 Delivery Device BiPAP Adult Vent Vent Mode Not entered AC Tidal Volume 450.0 POC PEEP 8 12 Peak Inspir Pressure 14 Crit Call To/Read Back Yes Blood Gas Notified Whom Karis Blood Gas Notified Time 07:38:37 Radiography Diagnostic Testing: Clinical Impression(s) from Imaging Studies Chest X-Ray 08/21/24 02:42 IMPRESSION: Bilateral airspace disease and small pleural effusions. Findings may be due to pneumonia or asymmetric pulmonary edema. Electronically Signed: Rachel Gutierrez MD at 3:55 EDT , Chest X-Ray 08/21/24 06:21 IMPRESSION: Endotracheal tube 6.7 cm above the tomasa at the superior margin of the clavicles. Increased perihilar airspace opacification suggestive of alveolar edema with mild interstitial edema and small layering effusions. Electronically Signed: Guicho Swift MD at 7:42 EDT , KUB X-Ray 08/21/24 06:29 IMPRESSION: Enteric tube projects subdiaphragmatic in the stomach. Electronically Signed: Guicho Swift MD at 7:44 EDT , Discharge Plan Triage Chief Complaint: Shortness of Breath ED Provider: Denys Acosta Dx/Rx/DC Orders Prescriptions: No Action diphenhydramine HCl [Allergy (diphenhydramine)] 25 mg capsule 25 mg PO .[id number] PRN (Reason: ONLY WITH INFUSIONS) tamsulosin 0.4 mg capsule 0.4 mg PO DAILY amlodipine 5 mg tablet 1 tab PO DAILY Patient Comments: TAKE 1 TABLET BY MOUTH DAILY acetaminophen 500 mg Tablet 1,000 mg PO Q8H PRN (Reason: Pain) cyanocobalamin (vitamin B-12) [Vitamin B-12] 500 mcg Tablet 500 mcg PO DAILY levothyroxine 125 mcg tablet 1 tab PO DAILY Patient Comments: TAKE 1 TABLET BY MOUTH DAILY ascorbic acid (vitamin C) [Vitamin C] 500 mg Tablet,Chewable 500 mg PO DAILY rituximab 10 mg/mL Concentrate 10 mg IV .[id number] Rx Instructions: Every 6 months cholecalciferol (vitamin D3) [Vitamin D3] 50 mcg (2,000 unit) Capsule 50 mcg PO DAILY methylprednisolone sodium succ 125 mg/2 mL Recon Soln 125 mg IV .[id number] Rx Instructions: Every 6 months omega-3 fatty acids Capsule 1,200 mg PO DAILY Patient Comments: STOP [address] EPSTEIN ceramides 1,3,6-II [CeraVe] Cream 1 applic TOPICAL DAILY triamcinolone aceton-silicones 0.1 % Kit 1 ea TOPICAL DAILY PRN (Reason: Rash) Primary Care Provider: Brown Montiel Referrals: Brown Montiel DO [Primary Care Provider] - Print Language: Italian Disposition Disposition: Discharge Date/Time: 08/21/24 09:03 Date/Time: 08/21/24 07:27
[2024-08-21] MEDS: Ipratropium/Albuterol Sulfate 3 ML AMPUL.NEB INHALATION (02:57)
[2024-08-21] MEDS: Albuterol 2.5 MG/3 ML VIAL.NEB. INHALATION (02:57)
[2024-08-21 03:06] LABS: Allen Test Positive; Base Excess -5 mmol/L (-2 to +2); Bicarbonate 18.8 mmol/L (22-26); Blood Gas Specimen Type ART; Mode Not entered; O2 Delivery Device BiPAP; PEEP 8; PIP 14; PO2 62 mmHG (75-100); RR 12; SITE R Radial; SO2 93 % (95-99); Total Carbon Dioxide 20 mmol/L; pCO2 27.5 mmHg (35-45); pH 7.44 (7.35-7.45)
[2024-08-21 03:09] LABS: International Normalized Ratio 1.1; Prothrombin Time (Protime)PT. 14.5 SECONDS (11.7-14.9)
[2024-08-21 03:10] LABS: Partial Thromboplast Time 22.8 Seconds (24.1-36.2)
[2024-08-21 03:14] LABS: BNP,B-Type NATRIURETIC PEPTIDE 615.1 pg/mL (0-100)
[2024-08-21 03:20] LABS: ALB/GLOB Ratio 0.7 RATIO (0.9-2.4); AST(SGOT) 57 U/L (15-37); Alanine Aminotransfer ALT/SGPT 45 U/L (16-61); Alkaline Phosphatase 111 U/L (45-117); Anion Gap 9 (5-15); BUN 29 mg/dL (7-18); BUN/Creat Ratio 11.2 RATIO (10-20); Calcium,Total 9.3 mg/dL (8.5-10.1); Chloride 102 mmol/L (98-107); EST Glomerular Filtration Rate 26 mL/min (>60); Est Glom Filt Rate - Afr Amer 31 mL/min (>60); Estimated Creatinine Clearance 26.15 ml/min; Globulin 4.6 g/dL (2.2-4.2); Glucose 138 mg/dL (74-106); Potassium 4.6 mmol/L (3.5-5.1); Protein, Total 7.6 g/dL (6.4-8.2); Sodium Level 132 mmol/L (136-145); Troponin-I HS (w/2H Reflex) 7853 pg/mL (3.0-78.0)
--- NOTE | 2024-08-21 03:21 | ED.RN ---
PHARMACY CALLED BY THIS RN ABOUT PTS ANTIBIOTICS ORDERED AT 0244. PHARMACY ADVISED ANTIBIOTICS WILL BE ON THEIR WAY UP.
[2024-08-21 03:28] LABS: Lactic Acid 2.7 mmol/L (0.4-1.9)
[2024-08-21] MEDS: Ceftriaxone 2 GM in 0.9% Normal Saline (50mL MB+) 50 ML IV (03:30)
--- NOTE | 2024-08-21 03:36 | ED.RN ---
DR. CAMPA AWARE OF SEPSIS ALERT, NO NEW ORDERS AT THIS TIME.
--- NOTE | 2024-08-21 04:05 | HP.PCM.HOS_ITS ---
[facility] - General General Date of Admission: 08/21/24 Date of Service: 08/21/24 Chief Complaint: Fever and SOB. [facility] Narrative BYRON WHITE, is a 78 M with a past medical history of essential hypertension, hypothyroidism, history of tobacco abuse, RA; on Rituximab, obesity; with BMI of 32.8 this admission, ANN, history of prostate cancer, BPH, history of vasculitis, neuropathy, history of foot drop, eczema, OA and listed allergy to PCN who presents to [facility] ER complaining of fever and SOB. Mr. White reports his symptoms began approximately two days prior to admission with [facility] Medical History Cataract (lens) fragments in eye following cataract surgery Abnormal pathology report from prostate needle biopsy Abnormal transrectal ultrasound of prostate PSA elevation BPH (benign prostatic hyperplasia) Loss of hearing Wears glasses Cancer Eczema Ambulates with cane Walker as ambulation aid Sciatic nerve pain Vasculitis Osteopenia Rheumatoid arthritis Foot drop Neuropathy Monoclonal paraproteinemia Sleep apnea High cholesterol Hypothyroid History of edema History of echocardiogram Hypertension History of renal disease Hx of ingrown nail Home Medications ?Medication ?Instructions ?Recorded ?Last Taken ?Type acetaminophen 500 mg tablet 1,000 mg PO Q8H PRN Pain 05/26/22 Unknown History amlodipine 5 mg tablet 1 tab PO DAILY 05/26/22 08/04/22 History 1 TAB ascorbic acid (vitamin C) 500 mg 500 mg PO DAILY 05/26/22 Unknown History chewable tablet (Vitamin C) cholecalciferol (vitamin D3) 50 50 mcg PO DAILY 05/26/22 Unknown History mcg (2,000 unit) capsule (Vitamin D3) cyanocobalamin (vitamin B-12) 500 500 mcg PO DAILY 05/26/22 Unknown History mcg tablet (Vitamin B-12) levothyroxine 125 mcg tablet 1 tab PO DAILY 05/26/22 08/04/22 History 1 TAB methylprednisolone sodium succ 125 125 mg IV .[id number] 05/26/22 Unknown History mg/2 mL solution for injection rituximab 10 mg/mL 10 mg IV .[id number] 05/26/22 Unknown History concentrate,intravenous diphenhydramine HCl 25 mg capsule 25 mg PO .[id number] PRN ONLY WITH 06/16/22 Unknown History (Allergy (diphenhydramine)) INFUSIONS ceramides 1,3,6-II (CeraVe topical 1 applic topical DAILY 07/28/22 Unknown History cream) omega-3 fatty acids 1,200 mg PO DAILY 07/28/22 07/29/22 History triamcinolone acetonide 0.1 1 ea topical DAILY PRN Rash 07/28/22 Unknown History %-silicones topical kit tamsulosin 0.4 mg capsule 0.4 mg PO DAILY 05/19/23 Unknown History Allergy/AdvReac Type Severity Reaction Status Date / Time methotrexate Allergy Other Verified 08/21/24 02:32 NSAIDS (Non-Steroidal AdvReac Other Verified 08/21/24 02:32 Anti-Inflamma Penicillins AdvReac Other Verified 08/21/24 02:32 Family History Father Cancer Marcus Cell Cancer Arthritis Mother Arthritis Surgical History Hx of prostate biopsy Hx of tonsillectomy H/O removal of cyst History of ankle surgery Social History household members: spouse number of children: 2 Smoking Status: Former smoker pack-years: 1 Vital Signs Vital Signs Vital Signs: 08/21/24 02:33 08/21/24 02:36 08/21/24 02:39 Temperature 100.3 F H 100.7 F H Temperature Source Axillary Axillary Pulse Rate 129 H 132 H Respiratory Rate 35 H 35 H Respiratory Effort Short of Breath Respiratory Depth Deep Respiratory Pattern Tachypnea Blood Pressure 112/72 112/72 Blood Pressure Mean 85 85 Pulse Ox 78 93 Oxygen Delivery Method Room Air High Flow Bi-pap Oxygen Flow Rate (L/min) 15 Fraction of Inspired Oxygen (FIO2) 08/21/24 02:40 08/21/24 02:41 08/21/24 02:57 Temperature Temperature Source Pulse Rate 123 H 109 H Respiratory Rate 31 H 30 H Respiratory Effort Respiratory Depth Respiratory Pattern Tachypnea Tachypnea Blood Pressure Blood Pressure Mean Pulse Ox 98 Oxygen Delivery Method Bi-pap Oxygen Flow Rate (L/min) Fraction of Inspired Oxygen (FIO2) 60 08/21/24 03:31 08/21/24 03:33 08/21/24 04:00 Temperature 100.6 F H Temperature Source Axillary Pulse Rate 111 H 111 H 110 H Respiratory Rate 29 H 29 H 27 H Respiratory Effort Respiratory Depth Respiratory Pattern Blood Pressure 90/53 L 90/53 L 92/58 L Blood Pressure Mean 65 65 69 Pulse Ox 94 94 92 Oxygen Delivery Method Bi-pap Bi-pap Bi-pap Oxygen Flow Rate (L/min) Fraction of Inspired Oxygen (FIO2) Weight Weight: 209 lb 10.554 oz Body Mass Index (BMI) 32.8 Results Lab / Micro Data 08/21/24 02:45 08/21/24 02:45 Labs: Laboratory Results - last 24 hr 08/21/24 02:45: WBC 14.7 H, RBC 4.82, Hgb 15.4, Hct 46.3, MCV 96.1 H, MCH 32.0, MCHC 33.3, RDW Std Deviation 48.9 H, RDW Coeff of Jake 13.7, Plt Count 338, MPV 9.2, Immature Gran % (Auto) 0.400, Neut % (Auto) 86.5 H, Lymph % (Auto) 5.0 L, [place] % (Auto) 7.7, Eos % (Auto) 0.1, Baso % (Auto) 0.3, Absolute Neuts (auto) 12.8 H, Absolute Lymphs (auto) 0.74 L, Nucleated RBC % 0, PT 14.5, INR 1.1, APTT 22.8 L, Sodium 132 L, Potassium 4.6, Chloride 102, Carbon Dioxide 21.0, Anion Gap 9, BUN 29 H, Creatinine 2.60 H, Estim Creat Clear Calc 26.15, Est GFR (MDRD) Af Amer 31 L, Est GFR (MDRD) Non-Af 26 L, BUN/Creatinine Ratio 11.2, Glucose 138 H, Lactic Acid 2.7 H*, Calcium 9.3, Total Bilirubin 0.80, AST 57 H, ALT 45, Alkaline Phosphatase 111, Troponin I High Sens 7853 H*, B-Natriuretic Peptide 615.1 H, Total Protein 7.6, Albumin 3.0 L, Globulin 4.6 H, Albumin/Globulin Ratio 0.7 L Micro: Microbiology 08/21/24 02:42 Mucosa - Nose SARS-CoV-2, Influenza & RSV (PCR) - Final ABG Data ABG results: ABG 08/21/24 03:02 Specimen Type ART Sample Site R Radial pH 7.44 Bicarbonate Actual 18.8 L Total CO2 20 Base Excess -5 L O2 Saturation 93 L O2 % 50.0 ABG pCO2 27.5 L ABG pO2 62 L Cedric Test Positive Respiration Rate 12 O2 Delivery Device BiPAP Vent Mode Not entered POC PEEP 8 Peak Inspir Pressure 14 Imaging Radiology Impression Chest X-Ray 08/21/24 02:42 IMPRESSION: Bilateral airspace disease and small pleural effusions. Findings may be due to pneumonia or asymmetric pulmonary edema. Electronically Signed: Rachel Gutierrez MD at 3:55 EDT ,
[2024-08-21] MEDS: Azithromycin 500 MG in Dextrose 5%-Water (250mL Bag) 250 ML 250 MG IV (04:19)
[2024-08-21 04:47] LABS: Reflex Troponin-HS? (from REC) Y
[2024-08-21] MEDS: 0.9% Normal Saline (500mL Bag) 500 ML 999 ML IV (04:58)
--- NOTE | 2024-08-21 05:02 | ED.RN ---
PT TRIED TO GIVE URINE SAMPLE VIA URINAL, UNSUCCESSFUL ATTEMPT. PER DR. CAMPA, NO CATHETERIZATION AT THIS TIME FOR URINE D/T HX OF PROSTATE CANCER AND URETHRAL NARROWING.
--- NOTE | 2024-08-21 05:13 | HP.PCM.HOS_ITS ---
HPI - General General Date of Admission: 08/21/24 Date of Service: 08/21/24 Chief Complaint: SOB and Fever. HPI Narrative BYRON WHITE, is a 78 M with a past medical history of essential hypertension, hyperlipidemia, hypothyroidism, previous tobacco abuse, obesity; with BMI of 32.8 this admission, ANN, RA; on Rituximab, history of vasculitis, history of monoclonal paraproteinemia, CKD; stage III, history of prostate cancer, BPH, history of foot drop, eczema, osteopenia, OA and listed allergy to PCN who presents to [facility] ER complaining of SOB and fever. Mr. White reports his symptoms began approximately 2 days prior to admission with the gradual-onset of GUERRA that progressed to SOB at rest with cough, chest congestion and cold-like symptoms. He took Tylenol for a fever ~1:00 AM without significant improvement. Then around 7:00 PM on the evening of August 20, 2024 he became more SOB so his decided to activate EMS who noted his oxygen saturation of 77% with a fever of 100 degrees Fahrenheit. He endorses worsening Right-sided chest tightness but he denies associated headache, abdominal pain, nausea, vomiting, diarrhea or constipation. In the ER he was noted to have a critically elevated initial troponin of 7,853 pg/mL present on admission consistent with NSTEMI with associated ST-depression from V3-V6 on admission EKG complicated by AE CHF with elevated BNP of 615 pg/mL present on admission complicated by Sepsis present on admission with CXR positive for bilateral infiltrates with Leukocytosis of 14.7K with Lactic Acidosis of 2.7 mmol/L present on admission along with severe hypotension in the ~80 mmHg systolic range with tachycardia of ~120 bpm, tachypnea of ~30 breaths/minute and fever of 100.6 degrees Fahrenheit causing ARF in the setting of CKD; stage III and Acute Hypoxic Respiratory Failure; requiring BiPAP with patient recommended for transfer to a tertiary care facility. Unfortunately, no bed was available for this critically ill patient with multi-organ failure at [facility] with a call now placed by ER physician for an alternative tertiary care center - but now this patient will apparently need to be admitted to the ICU here until a bed can be found for him so he was then admitted to the ICU for ongoing care for a stay that is expected to extend beyond 2 midnights. [facility] Medical History (Updated 08/21/24 @ 06:[address] Beck Chávez, DO) Cataract (lens) fragments in eye following cataract surgery Abnormal pathology report from prostate needle biopsy Abnormal transrectal ultrasound of prostate PSA elevation BPH (benign prostatic hyperplasia) Loss of hearing Wears glasses Cancer Eczema Ambulates with cane Walker as ambulation aid Sciatic nerve pain Vasculitis Osteopenia Rheumatoid arthritis Foot drop Neuropathy Monoclonal paraproteinemia Sleep apnea High cholesterol Hypothyroid History of edema History of echocardiogram Hypertension History of renal disease Hx of ingrown nail Home Medications ?Medication ?Instructions ?Recorded ?Last Taken ?Type acetaminophen 500 mg tablet 1,000 mg PO Q8H PRN Pain 05/26/22 Unknown History amlodipine 5 mg tablet 1 tab PO DAILY 05/26/22 08/04/22 History 1 TAB ascorbic acid (vitamin C) 500 mg 500 mg PO DAILY 05/26/22 Unknown History chewable tablet (Vitamin C) cholecalciferol (vitamin D3) 50 50 mcg PO DAILY 05/26/22 Unknown History mcg (2,000 unit) capsule (Vitamin D3) cyanocobalamin (vitamin B-12) 500 500 mcg PO DAILY 05/26/22 Unknown History mcg tablet (Vitamin B-12) levothyroxine 125 mcg tablet 1 tab PO DAILY 05/26/22 08/04/22 History 1 TAB methylprednisolone sodium succ 125 125 mg IV .[id number] 05/26/22 Unknown History mg/2 mL solution for injection rituximab 10 mg/mL 10 mg IV .[id number] 05/26/22 Unknown History concentrate,intravenous diphenhydramine HCl 25 mg capsule 25 mg PO .[id number] PRN ONLY WITH 06/16/22 Unknown History (Allergy (diphenhydramine)) INFUSIONS ceramides 1,3,6-II (CeraVe topical 1 applic topical DAILY 07/28/22 Unknown History cream) omega-3 fatty acids 1,200 mg PO DAILY 07/28/22 07/29/22 History triamcinolone acetonide 0.1 1 ea topical DAILY PRN Rash 07/28/22 Unknown History %-silicones topical kit tamsulosin 0.4 mg capsule 0.4 mg PO DAILY 05/19/23 Unknown History Allergy/AdvReac Type Severity Reaction Status Date / Time methotrexate Allergy Other Verified 08/21/24 02:32 NSAIDS (Non-Steroidal AdvReac Other Verified 08/21/24 02:32 Anti-Inflamma Penicillins AdvReac Other Verified 08/21/24 02:32 Family History Father Cancer Marcus Cell Cancer Arthritis Mother Arthritis Surgical History Hx of prostate biopsy Hx of tonsillectomy H/O removal of cyst History of ankle surgery Social History household members: spouse number of children: 2 Smoking Status: Former smoker pack-years: 1 ROS ROS Narrative Review of systems was not possible in this critically ill patient who was initially on BiPAP. Vital Signs Vital Signs Vital Signs: 08/21/24 02:33 08/21/24 02:36 08/21/24 02:39 Temperature 100.3 F H 100.7 F H Temperature Source Axillary Axillary Pulse Rate 129 H 132 H Respiratory Rate 35 H 35 H Respiratory Effort Short of Breath Respiratory Depth Deep Respiratory Pattern Tachypnea Blood Pressure 112/72 112/72 Blood Pressure Mean 85 85 Pulse Ox 78 93 Oxygen Delivery Method Room Air High Flow Bi-pap Oxygen Flow Rate (L/min) 15 Fraction of Inspired Oxygen (FIO2) 08/21/24 02:40 08/21/24 02:41 08/21/24 02:57 Temperature Temperature Source Pulse Rate 123 H 109 H Respiratory Rate 31 H 30 H Respiratory Effort Respiratory Depth Respiratory Pattern Tachypnea Tachypnea Blood Pressure Blood Pressure Mean Pulse Ox 98 Oxygen Delivery Method Bi-pap Oxygen Flow Rate (L/min) Fraction of Inspired Oxygen (FIO2) 60 08/21/24 03:31 08/21/24 03:33 08/21/24 04:00 Temperature 100.6 F H Temperature Source Axillary Pulse Rate 111 H 111 H 110 H Respiratory Rate 29 H 29 H 27 H Respiratory Effort Respiratory Depth Respiratory Pattern Blood Pressure 90/53 L 90/53 L 92/58 L Blood Pressure Mean 65 65 69 Pulse Ox 94 94 92 Oxygen Delivery Method Bi-pap Bi-pap Bi-pap Oxygen Flow Rate (L/min) Fraction of Inspired Oxygen (FIO2) 08/21/24 05:00 Temperature Temperature Source Pulse Rate 117 H Respiratory Rate 30 H Respiratory Effort Respiratory Depth Respiratory Pattern Blood Pressure 88/59 L Blood Pressure Mean 68 Pulse Ox 95 Oxygen Delivery Method Bi-pap Oxygen Flow Rate (L/min) Fraction of Inspired Oxygen (FIO2) Weight Weight: 209 lb 10.554 oz Body Mass Index (BMI) 32.8 Physical Exam Const Constitutional Narrative: Patient is lethargic on BiPAP. General Appearance: cooperative Orientation / Consciousness: lethargic HEENT normocephalic, head/scalp atraumatic, hearing grossly normal bilaterally and moist oral mucous membranes Eyes PERRL and EOMs intact bilaterally Neck no lymphadenopathy and supple Resp Resp Narrative: Diminished breath sounds throughout with coarse rhonci and wheezing. Cardio regular rate and regular rhythm Cardio Narrative: Tachycardia noted. GI normal to inspection, nondistended, normoactive bowel sounds, soft to palpation, non-tender and non-distended GI Narrative: Obese. Extremity normal to inspection Skin Skin Narrative: Patient has no evidence of jaundice. Neuro CN's II-XII intact bilaterally and moves all extremities Neuro Narrative: Patient is lethargic on BiPAP. Sensorium / Orientation: awake Psych Psych Narrative: Patient is lethargic but arosuable. Results Medical Records Data Attestation: I reviewed the patient's medical records Lab / Micro Data Attestation: I reviewed the patient's lab results. 08/21/24 02:45 08/21/24 02:45 Labs: Laboratory Results - last 24 hr 08/21/24 02:45: WBC 14.7 H, RBC 4.82, Hgb 15.4, Hct 46.3, MCV 96.1 H, MCH 32.0, MCHC 33.3, RDW Std Deviation 48.9 H, RDW Coeff of Jake 13.7, Plt Count 338, MPV 9.2, Immature Gran % (Auto) 0.400, Neut % (Auto) 86.5 H, Lymph % (Auto) 5.0 L, [place] % (Auto) 7.7, Eos % (Auto) 0.1, Baso % (Auto) 0.3, Absolute Neuts (auto) 12.8 H, Absolute Lymphs (auto) 0.74 L, Nucleated RBC % 0, PT 14.5, INR 1.1, APTT 22.8 L, Sodium 132 L, Potassium 4.6, Chloride 102, Carbon Dioxide 21.0, Anion Gap 9, BUN 29 H, Creatinine 2.60 H, Estim Creat Clear Calc 26.15, Est GFR (MDRD) Af Amer 31 L, Est GFR (MDRD) Non-Af 26 L, BUN/Creatinine Ratio 11.2, Glucose 138 H, Lactic Acid 2.7 H*, Calcium 9.3, Total Bilirubin 0.80, AST 57 H, ALT 45, Alkaline Phosphatase 111, Troponin I High Sens 7853 H*, B-Natriuretic Peptide 615.1 H, Total Protein 7.6, Albumin 3.0 L, Globulin 4.6 H, Albumin/Globulin Ratio 0.7 L Micro: Microbiology 08/21/24 02:42 Mucosa - Nose SARS-CoV-2, Influenza & RSV (PCR) - Final ABG Data ABG results: ABG 08/21/24 03:02 Specimen Type ART Sample Site R Radial pH 7.44 Bicarbonate Actual 18.8 L Total CO2 20 Base Excess -5 L O2 Saturation 93 L O2 % 50.0 ABG pCO2 27.5 L ABG pO2 62 L Cedric Test Positive Respiration Rate 12 O2 Delivery Device BiPAP Vent Mode Not entered POC PEEP 8 Peak Inspir Pressure 14 Imaging Radiology Impression Chest X-Ray 08/21/24 02:42 IMPRESSION: Bilateral airspace disease and small pleural effusions. Findings may be due to pneumonia or asymmetric pulmonary edema. Electronically Signed: Rachel Gutierrez MD at 3:55 EDT , Assessment & Plan Assessment/Plan (1) NSTEMI, initial episode of care: (2) Sepsis: QUALIFIERS: Acute respiratory failure type: with hypoxia Sepsis acute organ dysfunction status: with acute organ dysfunction Sepsis type: s epsis due to unspecified organism Severe sepsis acute organ dysfunction type: a cute respiratory failure Severe sepsis shock status: with septic shock Q ualified Code(s): A41.9 - Sepsis, unspecified organism; R65.21 - Severe sepsis with septic shock; J96.01 - Acute respiratory failure with hypoxia (3) Pneumonia: QUALIFIERS: Laterality: bilateral Lung location: unspecified part of lung Pneumonia type: due to unspecified organism Qualified Code(s): J18.9 - Pneumonia, unspecified organism (4) Acute heart failure: QUALIFIERS: Heart failure type: unspecified Qualified Code(s): I 50.9 - Heart failure, unspecified (5) ARF (acute renal failure): QUALIFIERS: Acute renal failure type: unspecified Qualified Code(s): N17.9 - Acute kidney failure, unspecified (6) Acute hypoxic respiratory failure: (7) Obesity (BMI 30.0-34.9): (8) Rheumatoid arthritis: QUALIFIERS: Rheumatoid arthritis location: unspecified site R heumatoid factor presence: unspecified presence Qualified Code(s): M06.9 - Rheumatoid arthritis, unspecified PLAN: Plan 1. NSTEMI; evidenced by critically elevated initial troponin of 7,853 pg/mL present on admission consistent with with associated ST-depression from V3-V6 on admission EKG - Admit to ICU. Continue IV Heparin and statin plus add BASA and Plavix. Serialize troponin. Check echocardiogram to evaluate LVEF. Give Morphine IV prn for severe (level 6-10/10) pain. Finally, we will consult [facility] cardiology and historic sites registrar to see this patient this admission with help appreciated in advance. 2. Sepsis with Septic Shock present on admission with CXR positive for bilateral infiltrates with Leukocytosis of 14.7K with Lactic Acidosis of 2.7 mmol/L present on admission along with severe hypotension in the ~80 mmHg systolic range with tachycardia of ~120 bpm, tachypnea of ~30 breaths/minute and fever of 100.6 degrees Fahrenheit complicating #1 with listed allergy to PCN - Continue broad-spectrum antibiotics with IV Vancomycin plus IV Azactam and await culture and sensitivity data. Check urinary antigens for Streptococcus pneumonia and Legionella. Give Tylenol prn for [id number] (level 1-5/10) pain or fever. Patient will likely need CVC and pressors to keep his MAP > 65 mmHg. 3. AE CHF with elevated BNP of 615 pg/mL present on admission compounding #1 & #2 - Patient cannot be diuresed safely given his hypotension and ARF. He has also been given ~1.5L of fluid as a bolus for treatment of #2 which may worsen his dyspnea. Check daily CXR and BNP to follow trend. 4. ARF in the setting of CKD; stage III arising from #1 - #3 - Gently volume resuscitate. Follow strict I's & O's and place Ferrer. Hold all potentially nephrotoxic agents. UA pending to look for evidence of infection and/or muddy brown casts of ATN. 5. Acute Hypoxic Respiratory Failure; requiring BiPAP due to #1 - #4 - Wean BiPAP as tolerated. Recheck ABG and plan for possible intubation if his respiratory status does not improve. 6. RA; on Rituximab - Noted. Hold immune-suppression agents until infection outlined in #2 has been neutralized. 7. Obesity; with BMI of 32.8 this admission plus ANN - Weight loss will be recommended. Check TSH. 8. Essential hypertension - Hold scheduled antihypertensives with severe infection causing sepsis and hypotension present on admission. 9. Hyperlipidemia - Resume statin and check Lipid Profile in light of #1. 10. Hypothyroidism - Continue Synthroid IV at 50% of oral dose. 11. Previous tobacco abuse - Noted. 12. History of vasculitis - Noted. 13. History of monoclonal paraproteinemia - Noted. 14. History of prostate cancer - Noted. 15. BPH - Stable. Maintain Tamsulosin as previous. 16. History of foot drop - Noted. 17. Eczema - Stable. 18. Osteopenia - Stable. 19. OA - Give Tylenol prn. 20. DVT/GI prophylaxis - Patient already on IV Heparin for #1. Protonix 40 mg IV daily. Total time: Approximately 75 minutes. Update: Patient required CVC, pressors and intubation while in the ER. We are still attempting to arrange transfer for this critically ill patient who has now developed EKG evidence of a STEMI. Prognosis is poor. Spoke with ER physician about this patient. MARCIO AVERY called at 6:35 AM. Sepsis Attestation Sepsis Alert: Yes Sepsis Attestation: Agree w/Sepsis Date exam was performed: 08/21/24 Time exam was performed: 06:00 Possible Source of Sepsis: Pulmonary Sepsis Organ Dysfunction Criteria Present: SBP < 90 mmHg or MAP < 65 mmHg, Acute Respiratory Failure (New need for BiPAP/CPAP or MV), Creatinine > 2.0 mg/dL and Lactic Acid > 2 mmol/L Fluid Resuscitation Fluid resuscitation indicated?: Yes Fluid Resuscitation ordered: Lesser volume fluid bolus ordered Amount of fluid ordered: 1 Reason for lesser fluid bolus:: Concern for fluid overload and Heart failure Sepsis Note Date exam was performed: 08/21/24 Time exam was performed: 06:35 Sepsis Attestation: Sepsis re-evaluation was performed Response to fluids: Non Fluid responsive hypotension and Vasopressors started Charges/Coding Visit Charges Inpatient E&M: 91156 Init Hosp L3
[2024-08-21] MEDS: Vancomycin HCl 2,000 MG in 0.9% Normal Saline (500mL Bag) 500 ML 250 MG IV (05:26)
[2024-08-21 05:33] LABS: Troponin-I HS 7346 pg/mL (3.0-78.0)
--- NOTE | 2024-08-21 05:35 | ED.RN ---
PT ACCEPTED AT [facility]. [facility] DOES NOT HAVE BED AVAILABLE AND WOULD LIKE PT ADMITTED HERE. CALL PLACED TO [facility] FOR POSSIBLE TRANSFER.
[2024-08-21] MEDS: Etomidate 20 MG/10 ML Vial IV (05:51)
[2024-08-21] MEDS: Succinylcholine Chloride 200 MG/10 ML SYRINGE 100 MG IV (05:52)
[2024-08-21] MEDS: Propofol 10MG/Ml 1,000 MG/100 ML Bottle 5.7 MG CONT INF (05:58)
--- NOTE | 2024-08-21 06:00 | EKG12_ITS ---
Test Reason : DYSRHYTHMIA Blood Pressure : / mmHG Vent. Rate : 107 BPM Atrial Rate : 107 BPM P-R Int : 170 ms QRS Dur : 092 ms QT Int : 358 ms P-R-T Axes : 062 -78 090 degrees QTc Int : 477 ms Sinus tachycardia Incomplete right bundle branch block Left anterior fascicular block Nonspecific ST and T wave abnormality Abnormal ECG Confirmed by Brown Concepcion ([id number]), editor index SHAREE WOOD ([id number]) on 08/22/2024 10:26:28 AM Referred By: JOSE RAUL Confirmed By:Brown Concepcion
[2024-08-21] MEDS: Midazolam 2 MG/2 ML Syringe IV (06:03)
--- NOTE | 2024-08-21 06:10 | EKG12_ITS ---
Test Reason : DYSRHYTHMIA Blood Pressure : / mmHG Vent. Rate : 131 BPM Atrial Rate : 131 BPM P-R Int : 144 ms QRS Dur : 092 ms QT Int : 282 ms P-R-T Axes : 000 260 073 degrees QTc Int : 416 ms Critical Test Result: STEMI Poor data quality, interpretation may be adversely affected Sinus tachycardia Right superior axis deviation Inferior-posterior infarct , possibly acute Lateral injury pattern ACUTE ME / STEMI Confirmed by Brown Concepcion ([id number]), fashion editor SHAREE WOOD ([id number]) on 08/22/2024 10:29:48 AM Referred By: Confirmed By:Brown Concepcion
[2024-08-21] MEDS: Norepinephrine 8 MG in 0.9% Normal Saline (250mL Bag) 242 ML 9.4 MG CONT INF (06:12)
[2024-08-21] MEDS: fentaNYL drip 100 ML 5 MCG CONT INF (06:12)
--- NOTE | 2024-08-21 06:21 | RAD_ITS ---
INDICATION: ET TUBE PLACEMENT EXAMINATION/TECHNIQUE: X-RAY - XR Chest 1 View COMPARISON: August 21, 2024. FINDINGS: LINES/DEVICES: Enteric tube extends subdiaphragmatic off the inferior study margin. Endotracheal tube 6.7 cm above the tomasa at the level of the clavicles.. LUNGS: Increased bilateral central lung airspace consolidation with mild diffuse interstitial thickening and small layering effusions. No pneumothorax. MEDIASTINUM AND CARDIOVASCULAR STRUCTURES: Cardiac silhouette not enlarged. BONES AND SOFT TISSUES: Unremarkable. RAD/Chest 1 View (Portable) IMPRESSION: Endotracheal tube 6.7 cm above the tomasa at the superior margin of the clavicles. Increased perihilar airspace opacification suggestive of alveolar edema with mild interstitial edema and small layering effusions. Electronically Signed: Guicho Swift MD at 7:42 EDT ,
--- NOTE | 2024-08-21 06:29 | RAD_ITS ---
INDICATION: PLACEMENT EXAMINATION/TECHNIQUE: X-RAY - XR Abdomen 1 View COMPARISON: Chest radiograph same day FINDINGS: BOWEL GAS PATTERN: Enteric tube projects subdiaphragmatic within the stomach. Nonspecific non-obstructive bowel gas pattern. Large upper abdominal colonic stool burden. FREE AIR: No specific evidence of pneumoperitoneum. View. ORGANOMEGALY: Not seen. CALCIFICATIONS: No concerning calcifications. LOWER CHEST: mixed interstitial and central airspace opacities with small effusions. BONES AND SOFT TISSUES: No acute pathology. RAD/Abdomen Single View (Portable) IMPRESSION: Enteric tube projects subdiaphragmatic in the stomach. Electronically Signed: Guicho Swift MD at 7:44 EDT ,
[2024-08-21 06:39] LABS: Bacteria 0 SEEN /hpf (None Seen); Mucous, Urine 0 SEEN /hpf (<or=2+); Red Blood Cells-Urine 0 SEEN /hpf (0-5); Squamous Epithelial Cells - UA 0 SEEN /hpf (0-5)
[2024-08-21 06:47] LABS: Reflex Lactate? Y
[2024-08-21] MEDS: Epinephrine (1 mg/ml) 1 MG in 0.9% Normal Saline (250mL Bag) 250 ML 15.1 MG CONT INF (06:49)
--- NOTE | 2024-08-21 07:27 | CPS ---
did not want anymore CPR. Ventilator stopped per dr. martin and maria isabel.
[2024-08-21 07:28] LABS: Color, Urine Yellow (Yellow); Glucose, Dipstick Normal (Normal); Ketone-Dipstick 5 mg/dl (Negative); Leukocyte Esterase-Dipstick 25 /ul (Negative); Nitrite-Dipstick Negative (Negative); Occult Blood-Urine Negative /ul (Negative); Protein-Dipstick 30 mg/dl (Negative); Specific Gravity, Urine 1.015 (1.002-1.030); Urine Bilirubin Dipstick Negative (Negative); Urine Clarity Clear (Clear); Urine Urobilinogen Normal (Normal)
--- NOTE | 2024-08-21 07:33 | ED.RN ---
Addendum entered by Sacha Parks 08/21/24 07:36: STATED TO DR. CAMPA AND DR. HERRING THAT SHE DID NOT WANT ANY MORE COMPRESSIONS TO BE DONE ON THIS PT AT THIS TIME. ANJU RN PRESENT IN ROOM, ALSO. Original Note: DR. CAMPA AT BEDSIDE, PT BRADYCARDIC AT 30 BPM, NO PULSE PRESENT BILATERAL FEMORALS, ULTRASOUND TO HEART - NO CARDIAC ACTIVITY PER DR. CAMPA. NO PULSE PRESENT ON DOPPLER. TIME OF CALLED AT 1140
[2024-08-21 07:35] LABS: White Blood Cells 0-5 SEEN /hpf (0-5)
[2024-08-21 07:41] LABS: Base Excess -21 mmol/L (-2 to +2); Bicarbonate 10.7 mmol/L (22-26); Blood Gas Specimen Type ART; Mode AC; O2 Delivery Device Adult Vent; PEEP 12; PO2 58 mmHG (75-100); RR 12; SITE L Brach; SO2 71 % (95-99); Total Carbon Dioxide 12 mmol/L; pCO2 45.9 mmHg (35-45); pH 6.97 (7.35-7.45)
--- NOTE | 2024-08-21 07:58 | ED.RN ---
Commissioned Police Officer called and released, [employer] called and released. will call with a home. Body will go to the [facility] [place].
--- NOTE | 2024-08-21 15:52 | CHAPLAIN ---
Type of Pastoral Visit ___ Initial Visit ___ Follow-up Visit ___ On-call Visit ___ General Patient Visit ___ Spiritual Assessment ___ Family Conference ___ Bereavement ___ Rapid Response ___ Code Blue ___ Other (describe below) Pastoral Care Referral From ___ Patient ___ Family ___ Nurse ___ Physician ___ Community Health Program Coordinator ___ Refueling Ramp Attendant ___ Other (describe below) Sacrament/Intervention ___ Active listening ___ Anointing ___ Religion ___ Bereavement ___ Communion ___ Anitra exploration ___ ___ Life review ___ Prayer ___ Reconciliation ___ Sacrament of Sick ___ Supportive presence ___ Wedding ___ Other (describe below) Pastoral Comments 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
== END 2024-08-21 09:03 ==
PROVIDERS: Internal Medicine; Emergency Provider Surgery; PCP Student in an Organized Health Care Education/Training Program; Visit Provider Surgery
DX: A41.9 Sepsis, unspecified organism (principal); M06.9 Rheumatoid arthritis, unspecified; N18.4 Chronic kidney disease, stage 4 (severe); R65.21 Severe sepsis with septic shock; J96.01 Acute respiratory failure with hypoxia; I13.0 Hypertensive heart and chronic kidney disease with heart failure and stage 1 through stage 4 chronic kidney disease, or unspecified chronic kidney disease; I47.20 Ventricular tachycardia, unspecified; I21.19 ST elevation (STEMI) myocardial infarction involving other coronary artery of inferior wall; E66.9 Obesity, unspecified; E87.1 Hypo-osmolality and hyponatremia; D84.9 Immunodeficiency, unspecified; I45.10 Unspecified right bundle-branch block; M19.90 Unspecified osteoarthritis, unspecified site; E78.5 Hyperlipidemia, unspecified; Z87.891 Personal history of nicotine dependence; N17.9 Acute kidney failure, unspecified; M85.80 Other specified disorders of bone density and structure, unspecified site; J18.9 Pneumonia, unspecified organism; E87.20 Acidosis, unspecified; Z79.890 Hormone replacement therapy; Z68.32 Body mass index [BMI] 32.0-32.9, adult; E03.9 Hypothyroidism, unspecified; N40.0 Benign prostatic hyperplasia without lower urinary tract symptoms; Z85.46 Personal history of malignant neoplasm of prostate
CPT/HCPCS: 31500; 31720; 36600; 51702; 71045; 74018; 80053; 81001; 82803; 83605; 83880; 84484; 85025; 85610; 85730; 87040; 87070; 87086; 87205; 87449; 87631; 92950; 93005; 94002; 94640; 96361; 96365; 96366; 96375; 99252; 99285; J7030; J7040; J7050; A4216; C1751; G0463; J0696; J3490